=== PATIENT | male | born 1955 | race Caucasian/White ===

== ENCOUNTER 2018-01-29 19:38 | Inpatient (IN) | payer BC, OTHER ==
[~2018-01-29] VITALS: Ht 170.2 cm; Wt 86.0 kg
[2018-01-29] MEDS ORDERED: IV NORMAL SALINE 1000ML BAG 1,000 ML IV ONE (20:15)
[2018-01-29] MEDS ORDERED: fentaNYL PF VIAL 100 MCG/2 ML VIAL IV ONE ×3 (20:15→22:15)
--- NOTE | 2018-01-29 20:31 | EKG ---
[facility] [address] [place] [address] Test Date: 2018-01-29 Test Time: 19:41:09 Pat Name: CITLALLI SIMMONS Department: Room: Gender: Male Retail Business Analyst: NABEEL : 1955 Requested By: JAMES SMITH Order Number: [id number] Reading MD: Gucci Braun MD Measurements Intervals [place] Rate: 62 P: 30 [place]: 216 QRS: -20 QRSD: 94 T: 7 QT: 422 QTc: 431 Interpretive Statements SINUS RHYTHM Electronically Signed On 01-31-2018 10:05:37 CDT by Gucci Braun MD
[2018-01-29 20:42] LABS: BASO # 0.1 x10^3/uL (0.0-0.2); BASO % 1 % (0-3); EOS # 0.2 x10^3/uL (0.0-0.7); EOS % 2 % (0-3); HEMATOCRIT 39.7 % (39.0-53.0); HEMOGLOBIN 13.3 g/dL (13.0-17.5); LYMPH # 0.9 x10^3/uL (1.0-4.8); LYMPH % 9 % (24-48); MEAN CORPUSCULAR HEMOGLOBIN 30 pg (25-35); MEAN CORPUSCULAR HGB CONC 34 g/dL (31-37); MEAN CORPUSCULAR VOLUME 88 fL (79-100); MONO # 0.8 x10^3/uL (0.0-1.1); MONO % 8 % (0-9); NEUT # 8.7 x10^3uL (1.8-7.7); NEUT % 81 % (31-73); PLATELET COUNT 215 x10^3/uL (140-400); RED BLOOD COUNT 4.49 x10^6/uL (4.30-5.70); RED CELL DISTRIBUTION WIDTH 13.9 % (11.5-14.5); WHITE BLOOD COUNT 10.7 x10^3/uL (4.0-11.0)
[2018-01-29 20:51] LABS: CALCIUM 7.8 mg/dL (8.5-10.1); CREATININE 0.9 mg/dL (0.7-1.3); GFR 85.2; POTASSIUM 3.9 mmol/L (3.5-5.1); PROTHROMBIN TIME PATIENT 12.9 SEC (11.7-14.0)
[2018-01-29 20:57] LABS: ALBUMIN 3.4 g/dL (3.4-5.0); ALBUMIN/GLOBULIN RATIO 1.2 (1.0-1.7); TOTAL BILIRUBIN 0.4 mg/dL (0.2-1.0); TOTAL PROTEIN 6.2 g/dL (6.4-8.2)
--- NOTE | 2018-01-29 21:06 | RAD ---
PQRS Compliance statement: One or more of the following individualized dose reduction techniques were utilized for this examination: 1. Automated exposure control. 2. Adjustment of the mA and/or kV according to patient size. 3. Use of iterative reconstruction technique. Indication:fall from ladder, no priors TECHNIQUE: CT head without IV contrast COMPARISON:None FINDINGS: No pathologic extra-axial or intra-axial fluid collection. The ventricles and basal cisterns are within normal limits. No acute intracranial bleed. Orbits are within normal limits. No acute calvarial fractures. Visualized paranasal sinuses and mastoid air cells are clear. IMPRESSION: No acute intracranial process. Indication:fall from ladder, no priors TECHNIQUE: CT of the cervical spine without IV contrast with multiplanar reformats. COMPARISON:None FINDINGS: The cervical spine is in normal anatomic alignment. Atlantoaxial joint interval is preserved. No compression deformities. Facet joints are in normal anatomic alignment. No acute fractures. The noncontrast sections through the visualized neck soft tissues are within normal limits. Visualized lung apices are clear. IMPRESSION: No acute fractures. Electronically signed by: Gabriel Gonzáles DO (01/29/2018 9:02 PM) [facility]
--- NOTE | 2018-01-29 21:13 | PHYS DOC ---
Past Medical History Past Medical History: No Pertinent History Past Surgical History: No Surgical History Alcohol Use: None Drug Use: None Adult General Chief Complaint Chief Complaint: TRAUMA ACTIVATION HPI HPI Patient is a 62-year-old male who presents to the emergency department after having fallen from a ladder. Patient states that he was helping cleaning the gutters of his [id number]'s house and as he was cleaning, the ladder started sliding backwards. The patient attempted to grab the gutter for support but unable to hold on. Patient states that he fell approximately 20 feet. Patient states that his right wrist hurts the most at the moment and his pain is 5/10 in severity. Patient states that any movement of his wrist makes the pain worse. Patient also reports striking left knee on ladder as he fell down. Denies head trauma or neck pain. EMS placed patient in C-collar. Denies numbness or tingling. Denies epistaxis. Review of Systems Review of Systems Constitutional: Denies fever or chills [] Eyes: Denies change in visual acuity, redness, or eye pain [] HENT: Denies nasal congestion or sore throat [] Respiratory: Denies cough or shortness of breath [] Cardiovascular: Denies chest pain palpitations[] GI: Denies abdominal pain, nausea, vomiting, or diarrhea [] : Denies dysuria or hematuria [] Musculoskeletal: Endorses right wrist pain, left knee pain, and generalized body soreness Neurologic: Denies headache, focal weakness or sensory changes [] Complete systems were reviewed and found to be within normal limits, except as documented in this note. Current Medications Current Medications Current Medications Medications (Trade) Dose Ordered Sig/Brenda Start Time Stop Time Status Last Admin Dose Admin Fentanyl Citrate (Fentanyl 2ml Vial) 50 mcg 1X ONCE 01/29/18 21:30 01/29/18 21:31 DC 01/29/18 22:08 50 MCG Sodium Chloride 1,000 ml @ 1,000 mls/hr 1X ONCE 01/29/18 20:15 01/29/18 21:14 DC 01/29/18 21:10 1,000 MLS/HR Allergies Allergies Allergies Coded Allergies Type Severity Reaction Last Updated Verified No Known Drug Allergies 01/29/18 No Physical Exam Physical Exam Constitutional: Well developed, well nourished, no acute distress, non-toxic appearance. [] HENT: Normocephalic, atraumatic, oropharynx moist, no oral exudates, nose normal. [] Eyes: PERRL, EOMI. [] Neck: Supple, no stridor, c-collar in place Cardiovascular: Heart rate regular rhythm, no murmur [] Lungs & Thorax: Bilateral breath sounds clear to auscultation [] Abdomen: Soft, no tenderness Skin: Warm, dry, no erythema, no rash. [] Back: no midline spinal tenderness. [] Extremities: Pelvis stable. Right wrist tender, edematous and limited ROM, Deformity noted, left knee with tenderness on palpation of tibial plateau with mild swelling, Anterior drawer test negative. Neurologic: Alert and oriented X 3, normal motor function, normal sensory function, no focal deficits noted. Cerebellar function intact Current Patient Data Vital Signs Vital Signs Date Time Temp Pulse Resp B/P (MAP) Pulse Ox O2 Delivery O2 Flow Rate FiO2 01/29/18 21:11 22 98 Lab Values Laboratory Tests Test 01/29/18 20:35 White Blood Count 10.7 x10^3/uL (4.0-11.0) Red Blood Count 4.49 x10^6/uL (4.30-5.70) Hemoglobin 13.3 g/dL (13.0-17.5) Hematocrit 39.7 % (39.0-53.0) Mean Corpuscular Volume 88 fL (79-100) Mean Corpuscular Hemoglobin 30 pg (25-35) Mean Corpuscular Hemoglobin Concent 34 g/dL (31-37) Red Cell Distribution Width 13.9 % (11.5-14.5) Platelet Count 215 x10^3/uL (140-400) Neutrophils (%) (Auto) 81 % (31-73) H Lymphocytes (%) (Auto) 9 % (24-48) L Monocytes (%) (Auto) 8 % (0-9) Eosinophils (%) (Auto) 2 % (0-3) Basophils (%) (Auto) 1 % (0-3) Neutrophils # (Auto) 8.7 x10^3uL (1.8-7.7) H Lymphocytes # (Auto) 0.9 x10^3/uL (1.0-4.8) L Monocytes # (Auto) 0.8 x10^3/uL (0.0-1.1) Eosinophils # (Auto) 0.2 x10^3/uL (0.0-0.7) Basophils # (Auto) 0.1 x10^3/uL (0.0-0.2) Prothrombin Time 12.9 SEC (11.7-14.0) Prothrombin Time INR 1.0 (0.8-1.1) PTT 21 SEC (24-38) L Sodium Level 141 mmol/L (136-145) Potassium Level 3.9 mmol/L (3.5-5.1) Chloride Level 107 mmol/L (98-107) Carbon Dioxide Level 28 mmol/L (21-32) Anion Gap 6 (6-14) Blood Urea Nitrogen 18 mg/dL (8-26) Creatinine 0.9 mg/dL (0.7-1.3) Estimated GFR (Cockcroft-Gault) 85.2 BUN/Creatinine Ratio 20 (6-20) Glucose Level 112 mg/dL (70-99) H Calcium Level 7.8 mg/dL (8.5-10.1) L Magnesium Level 2.0 mg/dL (1.8-2.4) Total Bilirubin 0.4 mg/dL (0.2-1.0) Aspartate Amino Transferase (AST) 28 U/L (15-37) Alanine Aminotransferase (ALT) 32 U/L (16-63) Alkaline Phosphatase 65 U/L (46-116) Total Protein 6.2 g/dL (6.4-8.2) L Albumin 3.4 g/dL (3.4-5.0) Albumin/Globulin Ratio 1.2 (1.0-1.7) Ethyl Alcohol Level < 10 mg/dL (0-10) Laboratory Tests 01/29/18 20:35 Laboratory Tests 01/29/18 20:35 EKG EKG NSR at 62bpm, NO ST elevation Radiology/Procedures Radiology/Procedures PROCEDURE: CT HEAD AND CERVICAL SPINE [facility] Compliance statement: One or more of the following individualized dose reduction techniques were utilized for this examination: 1. Automated exposure control. 2. Adjustment of the mA and/or kV according to patient size. 3. Use of iterative reconstruction technique. Indication:fall from ladder, no priors TECHNIQUE: CT head without IV contrast COMPARISON:None FINDINGS: No pathologic extra-axial or intra-axial fluid collection. The ventricles and basal cisterns are within normal limits. No acute intracranial bleed. Orbits are within normal limits. No acute calvarial fractures. Visualized paranasal sinuses and mastoid air cells are clear. IMPRESSION: No acute intracranial process. Indication:fall from ladder, no priors TECHNIQUE: CT of the cervical spine without IV contrast with multiplanar reformats. COMPARISON:None FINDINGS: The cervical spine is in normal anatomic alignment. Atlantoaxial joint interval is preserved. No compression deformities. Facet joints are in normal anatomic alignment. No acute fractures. The noncontrast sections through the visualized neck soft tissues are within normal limits. Visualized lung apices are clear. IMPRESSION: No acute fractures. Electronically signed by: Gabriel Gonzáles DO (01/29/2018 9:02 PM) [facility] PROCEDURE: CT CHEST ABD PELVIS W/CONTRAST INDICATION: fall from ladder, back pain, no priors COMPARISON: None. TECHNIQUE: Axial CT images obtained through the chest, abdomen and pelvis with intravenous contrast. Reformatted images were processed of the thoracic and lumbar spine. One or more of the following individualized dose reduction techniques were utilized for this examination: 1. Automated exposure control; 2. Adjustment of the mA and/or kV according to patient size; 3. Use of iterative reconstruction technique. FINDINGS: Chest: No evidence of pneumothorax. Probable dependent atelectasis. Ascending thoracic aorta partially obscured by motion but portion appears prominent in size measuring up to about 44 mm. Small fluid in pericardial recess which is a common finding. Mild angulation of the right sixth rib anteriorly. Angulation of a couple of the left mid ribs anteriorly, this includes the third through fifth ribs. Mild angulation of the right 11th rib anteriorly. Abdomen and pelvis: Mild calcific atherosclerosis without abdominal aortic aneurysm. No perihepatic hemorrhage. There are some subcentimeter low-density liver lesions which are too small to characterize on this exam but a common finding. No peripancreatic fluid collection. No perisplenic hemorrhage. No hydronephrosis. At the posterior aspect of the right kidney there is suggestion of a mixed attenuation masslike structure measuring up to about 3 cm. There is adjacent 13 mm low-density right renal lesion. Urinary bladder is partially distended at time of exam. No dilated loops of bowel to suggest obstruction. No definite intra-abdominal hemorrhage. Thoracic spine: There are some degenerative changes without evidence of malalignment. Mild loss of height of a couple of the thoracic vertebral bodies including T8 and T9. Lumbar spine: Degenerative changes are identified without definite acute fracture or dislocation. IMPRESSION: 1. No definite solid organ or vascular injury. 2. suspected solid mass of the right kidney. Would obtain a nonemergent follow-up CT or MRI renal protocol to further evaluate since renal cell carcinoma is in the differential for this finding. 3. Minimal loss of height of a couple of the thoracic vertebral bodies including T8 and T9. This is a very subtle finding and could be the patient's baseline appearance or secondary to old mild compression deformity unless there is significant point tenderness in the region to suggest a mild compression fracture. There is also some mild angulation of bilateral ribs which could be from old injury but would correlate with point tenderness to ensure that there is not acute fracture. 4. Ascending thoracic aorta prominent in size. XRs (Preliminary interpretation by ED physician) Right wrist: Comminuted distal radius fracture Left knee: Lateral tibial plateau fracture CXR: No acute process Pelvis: No acute fracture/dislocation Right forearm s/p splint placement: Slight improved alignment of comminuted distal radius fracture Course & Med Decision Making Course & Med Decision Making Pertinent Labs and Imaging studies reviewed. (See chart for details) Patient presents as trauma activation status post fall approximately 20 feet on a extension ladder. Patient with obvious deformity of right wrist and pain to left knee. Pain address. Patient neurologically intact. C-collar maintained. Trauma evaluation performed. FAST exam negative. CT head/chest/abdomen/pelvis without acute process. CT cervical/thoracic/lumbar spine without fracture or dislocation. Chest x-ray/pelvis x-ray without acute process. X-ray of right wrist notes comminuted distal right radius fracture. Limb neurovascularly intact. Left knee x-ray with lateral tibial plateau fracture. Sugar tong splint applied to right arm. Forearm XR notes some slight improvement of alignment. Knee immobilizer also placed. Discussed case with Dr. Richardson (trauma) who is in agreement with consultation. Discussed case with Dr. Cardona (orthopedics) who is also in agreement with consultation. Patient requiring admission for further evaluation and treatment. Discussed with Dr. Ashford (hospitalist) who is in agreement with admission. Discussed findings and plan with patient and family, who acknowledge understanding and agreement. Dragon Disclaimer Dragon Disclaimer This electronic medical record was generated, in whole or in part, using a voice recognition dictation system. Splinting Splinting : Location: right wrist and left knee Pre-Made Type: knee immobilizer (left knee) Hand-Made Type: orthoglass (R wrist) Splint: sugar-tong (right wrist) Pre-Proc Neuro Vasc Exam: normal Post-Proc Neuro Vasc Exam: normal, unchanged from pre-exam Departure Departure Impression: Primary Impression: Fall Additional Impressions: Fracture of left tibial plateau Fracture of right distal radius Disposition: ADMITTED INPATIENT Admitting Physician: Leatha Ashford Condition: STABLE Referrals: DAWSON RAMIREZ DO (PCP) Problem Qualifiers Primary Impression: Fall Encounter type: initial encounter Qualified Codes: W19.XXXA - Unspecified fall, initial encounter Additional Impressions: Fracture of left tibial plateau Encounter type: initial encounter Fracture type: closed Qualified Codes: S82.142A - Displaced bicondylar fracture of left tibia, initial encounter for closed fracture Fracture of right distal radius Encounter type: initial encounter Fracture type: closed Fracture morphology : unspecified fracture morphology Qualified Codes: S52.501A - Unspecified fracture of the lower end of right radius, initial encounter for closed fracture JAMES SMITH DO Jan 29, 2018 21:13
[2018-01-29] MEDS ORDERED: CONTRAST GIVEN. MC PRN (22:45)
[2018-01-29 23:00] VITALS: BP 152/96
[2018-01-29] MEDS ORDERED: IOHEXOL 300 MG/ML 100ML VIAL. IV ONE (23:00)
--- NOTE | 2018-01-29 23:57 | RAD ---
INDICATION: fall from ladder, back pain, no priors COMPARISON: None. TECHNIQUE: Axial CT images obtained through the chest, abdomen and pelvis with intravenous contrast. Reformatted images were processed of the thoracic and lumbar spine. One or more of the following individualized dose reduction techniques were utilized for this examination: 1. Automated exposure control; 2. Adjustment of the mA and/or kV according to patient size; 3. Use of iterative reconstruction technique. FINDINGS: Chest: No evidence of pneumothorax. Probable dependent atelectasis. Ascending thoracic aorta partially obscured by motion but portion appears prominent in size measuring up to about 44 mm. Small fluid in pericardial recess which is a common finding. Mild angulation of the right sixth rib anteriorly. Angulation of a couple of the left mid ribs anteriorly, this includes the third through fifth ribs. Mild angulation of the right 11th rib anteriorly. Abdomen and pelvis: Mild calcific atherosclerosis without abdominal aortic aneurysm. No perihepatic hemorrhage. There are some subcentimeter low-density liver lesions which are too small to characterize on this exam but a common finding. No peripancreatic fluid collection. No perisplenic hemorrhage. No hydronephrosis. At the posterior aspect of the right kidney there is suggestion of a mixed attenuation masslike structure measuring up to about 3 cm. There is adjacent 13 mm low-density right renal lesion. Urinary bladder is partially distended at time of exam. No dilated loops of bowel to suggest obstruction. No definite intra-abdominal hemorrhage. Thoracic spine: There are some degenerative changes without evidence of malalignment. Mild loss of height of a couple of the thoracic vertebral bodies including T8 and T9. Lumbar spine: Degenerative changes are identified without definite acute fracture or dislocation. IMPRESSION: 1. No definite solid organ or vascular injury. 2. suspected solid mass of the right kidney. Would obtain a nonemergent follow-up CT or MRI renal protocol to further evaluate since renal cell carcinoma is in the differential for this finding. 3. Minimal loss of height of a couple of the thoracic vertebral bodies including T8 and T9. This is a very subtle finding and could be the patient's baseline appearance or secondary to old mild compression deformity unless there is significant point tenderness in the region to suggest a mild compression fracture. There is also some mild angulation of bilateral ribs which could be from old injury but would correlate with point tenderness to ensure that there is not acute fracture. 4. Ascending thoracic aorta prominent in size. Electronically signed by: Nathan Day MD (01/29/2018 11:53 PM) [facility]
[2018-01-30 00:47] LABS: BILIRUBIN,URINE NEGATIVE (NEG); CLARITY,URINE CLEAR; COLOR,URINE YELLOW; NITRITE,URINE NEGATIVE (NEG); PROTEIN,URINE NEGATIVE (NEG-TRACE); UROBILINOGEN,URINE 0.2 mg/dL (0.2 mg/dL)
[2018-01-30 00:53] LABS: BARBITURATES NEG (NEG); BENZODIAZEPINES NEG (NEG); CANNABINOIDS NEG (NEG); COCAINE NEG (NEG); METHADONE NEG (NEG); OPIATES NEG (NEG); PHENCYCLIDINE NEG (NEG)
[2018-01-30 00:55] LABS: AMPHETAMINE/METHAMPHETAMINE NEG (NEG)
[2018-01-30 00:58] LABS: BACTERIA,URINE 0 /HPF (0-FEW); RBC,URINE 0 /HPF (0-2); SQUAMOUS EPITHELIAL CELL,UR OCC /LPF; WBC,URINE OCC /HPF (0-4)
[2018-01-30] MEDS: fentaNYL PF VIAL 100 MCG/2 ML VIAL IV PRN ×9 (01:14→23:31)
[2018-01-30 03:00] VITALS: BP 126/80
[2018-01-30] MEDS ORDERED: PSEU120T9 PO (06:19)
[2018-01-30] MEDS ORDERED: ASPI-630 PO (06:19)
[2018-01-30] MEDS ORDERED: CETI10TA22 PO (06:19)
[2018-01-30 07:00] VITALS: BP 140/94
--- NOTE | 2018-01-30 09:12 | RAD ---
EXAM: PA, oblique and lateral views of the right wrist DATE: 01/29/2018 8:12 PM INDICATION: FALL FROM LADDER COMPARISON: No Prior FINDINGS/ IMPRESSION: Comminuted right wrist fracture extending from the distal radial diametaphysis to the articular surface at the radial styloid. There is mild impaction of the fracture with approximately 1 cm overriding of the proximal fragments. There is 4 mm gap at the articular surface. Neutral radial tilt with flattening of the inclination angle. Moderate soft tissue swelling is seen. Thumb CMC prominent degenerative changes are seen. Electronically signed by: Yogi Greene MD (01/30/2018 9:09 AM) [facility]
--- NOTE | 2018-01-30 09:19 | RAD ---
Right forearm 2 views: Reason for examination: Status post splint for a distal radial fracture. Comparison is made to previous wrist examination dated 01/29/2018. Again evident is a comminuted fracture with intra-articular extension at the distal radius. There is slight improvement in alignment. Again noted is the ulnar styloid fracture which is unchanged. Carpal bones appear to be intact. IMPRESSION: Comminuted fracture of the distal radius with intra-articular extension showing a slight improvement in alignment post splinting. No change in the ulnar styloid fracture. Electronically signed by: Gale Naidu MD (01/30/2018 9:15 AM) [facility]
--- NOTE | 2018-01-30 09:21 | RAD ---
EXAM: AP, oblique and lateral views of the left knee DATE: 01/29/2018 8:12 PM INDICATION: FALL FROM LADDER COMPARISON: No Prior FINDINGS/ IMPRESSION: There is comminuted fracture of the lateral tibial plateau with associated fragmentation and depression of the articular surface measuring at least 1 cm. There is a split-type fracture as seen on the lateral view extending from the articular surface to the proximal tibial shaft posteriorly. Small left knee joint effusion. Electronically signed by: Yogi Greene MD (01/30/2018 9:17 AM) [facility]
--- NOTE | 2018-01-30 09:25 | RAD ---
EXAM: Portable supine AP chest DATE: 01/29/2018 8:02 PM INDICATION: FALL FROM LADDER COMPARISON: No Prior FINDINGS: The heart is not enlarged. Mediastinal and hilar contours are normal. No focal parenchymal airspace opacity. No pleural effusion or pneumothorax. IMPRESSION: 1. No radiographic evidence for acute cardiopulmonary process. Electronically signed by: Yogi Greene MD (01/30/2018 9:21 AM) [facility]
--- NOTE | 2018-01-30 09:29 | RAD ---
EXAM: AP pelvis DATE: 01/29/2018 8:02 PM INDICATION: FALL FROM LADDER COMPARISON: No Prior FINDINGS: No evidence of acute fracture or dislocation. Joint spaces are grossly preserved mild marginal acetabular proliferative change. Mild iliac crest enthesopathy. IMPRESSION: No evidence for acute fracture or dislocation. Electronically signed by: Ygoi Greene MD (01/30/2018 9:25 AM) [facility]
[2018-01-30] MEDS: oxyCODONE/APAP 5/325 1 TAB TABLET PO PRN ×4 (09:53→23:19)
--- NOTE | 2018-01-30 09:53 | PDOC2 ---
CONSULT Date of Consult Date of Consult DATE: 01/30/18 TIME: 09:46 Reason for Consult Reason for Consult: Right distal radius and left tibial plateau fractures Referring Physician Referring Physician: Titus Identification/Chief Complaint Chief Complaint Right wrist pain Source Source: Patient History of Present Illness Reason for Visit: Patient is a pleasant 62-year-old gentleman who had a fall from a height, proximally 12:15 feet while he was up on a ladder, he landed with his weight on his leg and then fell to the side bracing his fall with his right wrist. Because of pain, deformity, and inability to ambulate he was brought in as a trauma activation. He is complaining that his wrist hurts more than his leg. He has also noted some left foot and ankle pain. He denies pain elsewhere, including his back and abdomen. His pain is worse with any movement, it is a little bit better press, the IV pain medicine has been helping, but it is not lasting long. He denies any nausea or vomiting, no chest pain, no difficulty breathing. Past Medical History Cardiovascular: No pertinent hx Pulmonary: No pertinent hx Past Surgical History Past Surgical History Tonsillectomy, rotator cuff surgery Family History Family History: Heart Disease Social History No ALCOHOL: rare Current Problem List Problem List Problems Medical Problems: (1) Fall Status: Acute (2) Fracture of left distal radius Status: Acute (3) Fracture of left tibial plateau Status: Acute (4) Fracture of right distal radius Status: Acute Current Medications Current Medications Current Medications Fentanyl Citrate (Fentanyl 2ml Vial) 50 mcg 1X ONCE IV Last administered on at 21:11; Start 01/29/18 at 20:15; Stop 01/29/18 at 20:16; Status DC Sodium Chloride 1,000 ml @ 1,000 mls/hr 1X ONCE IV Last administered on at 21:10; Start 01/29/18 at 20:15; Stop 01/29/18 at 21:14; Status DC Fentanyl Citrate (Fentanyl 2ml Vial) 50 mcg 1X ONCE IV Last administered on at 22:08; Start 01/29/18 at 21:30; Stop 01/29/18 at 21:31; Status DC Fentanyl Citrate (Fentanyl 2ml Vial) 50 mcg PRN Q2HR PRN IV SEVERE PAIN Last administered on 01/30/18at 07:45; Start 01/29/18 at 22:00; Stop 01/30/18 at 21:59 Fentanyl Citrate (Fentanyl 2ml Vial) 50 mcg 1X ONCE IV Last administered on at 23:33; Start 01/29/18 at 22:15; Stop 01/29/18 at 22:16; Status DC Iohexol (Omnipaque 300 Mg/ml) 75 ml 1X ONCE IV Last administered on 01/29/18at 23:17; Start 01/29/18 at 23:00; Stop 01/29/18 at 23:01; Status DC Info (CONTRAST GIVEN -- Rx MONITORING) 1 each PRN DAILY PRN MC SEE COMMENTS; Start 01/29/18 at 22:45; Stop 01/31/18 at 22:44 Oxycodone/ Acetaminophen (Percocet 5/325) 1 tab PRN Q4HRS PRN PO PAIN; Start at 09:45; Status UNV Active Scripts Active Reported Sudafed 12-Hour (Pseudoephedrine Hcl) 120 Mg Tablet.er 120 Mg PO DAILY Aspirin 81 Mg Tab.chew 1 Tab PO DAILY Zyrtec (Cetirizine Hcl) 10 Mg Tablet 1 Tab PO HS Allergies Allergies: Coded Allergies: No Known Drug Allergies (Unverified , 01/29/18) ROS General: No: Chills, Night Sweats, Fatigue, Malaise, Appetite, Other PSYCHOLOGICAL ROS: No: Anxiety, Behavioral Disorder, Concentration difficultie , Decreased libido, Depression, Disorientation, Hallucinations, Hostility, Irritablity, Memory difficulties, Mood Swings, Obsessive thoughts, Physical abuse, Sexual abuse, Sleep disturbances, Suicidal ideation, Other Eyes: No Blurry vision, No Decreased vision, No Double vision, No Dry eyes, No Excessive tearing, No Eye Pain, No Itchy Eyes, No Loss of vision, No Photophobia , No Scotomata, No Uses contacts, No Uses glasses, No Other HEENT: No: Heacaches, Visual Changes, Hearing change, Nasal congestion, Nasal discharge, Oral lesions, Sinus pain, Sore Throat, Epistaxis, Sneezing, Snoring, Tinnitus, Vertigo, Vocal changes, Other ALLERGY AND IMMUNOLOGY: No: Hives, Insect Bite Sensitivity, Itchy/Watery Eyes, Nasal Congestion, Post Nasal Drip, Seasonal Allergies, Other Hematological and Lymphatic: No: Bleeding Problems, Blood Clots, Blood Transfusions, Brusing, Night Sweats, Pallor, Swollen Lymph Nodes, Other ENDOCRINE: No: Breast Changes, Galactorrhea, Hair Pattern Changes, Hot Flashes , Malaise/lethargy, Mood Swings, Palpitations, Polydipsia/polyuria, Skin Changes , Temperature Intolerance, Unexpected Weight Changes, Other Respiratory: No: Cough, Hemoptysis, Orthopnea, Pleuritic Pain, Shortness of breath, SOB with excertion, Sputum Changes, Stridor, Tachypnea, Wheezing, Other Cardiovascular: No Chest Pain, No Palpitations, No Orthopnea, No Paroxysmal Noc. Dyspnea, No Edema, No Lt Headedness, No Other Gastrointestinal: No Nausea, No Vomiting, No Abdominal Pain, No Diarrhea, No Constipation, No Melena, No Hematochezia, No Other Genitourinary: No Dysuria, No Frequency, No Incontinence, No Hematuria, No Retention, No Discharge, No Urgency, No Pain, No Flank Pain, No Other, No , No , No , No , No , No , No Musculoskeletal: Yes Joint Pain, Yes Muscle Pain Neurological: No Behavorial Changes, No Bowel/Bladder ControlChng, No Confusion , No Dizziness, No Gait Disturbance, No Headaches, No Impaired Coord/balance, No Memory Loss, No Numbness/Tingling, No Seizures, No Speech Problems, No Tremors, No Visual Changes, No Weakness, No Other Skin: No Dry Skin, No Eczema, No Hair Changes, No Lumps, No Mole Changes, No Mottling, No Nail Changes, No Pruritus, No Rash, No Skin Lesion Changes, No Other, No Acne Physical Exam General: Alert, Oriented X3, mild distress HEENT: Atraumatic, EOMI Lungs: Other (respirations are unlabored with symmetric chest rise) Heart: Regular rate, Other (dorsalis pedis 2+ bilaterally) Abdomen: Soft, No tenderness Extremities: No edema, Normal pulses Skin: No rashes Neuro: Normal speech, Strength at 5/5 X4 ext, Sensation intact Psych/Mental Status: Mental status NL, Mood NL MUSCULOSKELETAL: Other (no tenderness at bony prominences and spine. He is in a sugar tong to his right upper extremity, mild edema at his fingers. Motor and sensation intact to be exposed digits. He has a knee immobilizer place over his left lower extremity. He does have an effusion present at his knee. He does have edema around the fracture site but no blisters. No pain with passive range of motion at ankle or toes. Compartments are soft. He is tender over his lateral midfoot on the left side. No tenderness at bony prominences of right lower extremity or left upper extremity.) Vitals VITALS Vital Signs Date Time Temp Pulse Resp B/P (MAP) Pulse Ox O2 Delivery O2 Flow Rate FiO2 01/30/18 07:45 Room Air 01/30/18 07:00 98.1 64 18 140/94 (109) 95 98.1 01/29/18 22:13 96.0 Labs Labs Laboratory Tests Test 01/29/18 20:35 01/30/18 00:40 White Blood Count 10.7 x10^3/uL (4.0-11.0) Red Blood Count 4.49 x10^6/uL (4.30-5.70) Hemoglobin 13.3 g/dL (13.0-17.5) Hematocrit 39.7 % (39.0-53.0) Mean Corpuscular Volume 88 fL (79-100) Mean Corpuscular Hemoglobin 30 pg (25-35) Mean Corpuscular Hemoglobin Concent 34 g/dL (31-37) Red Cell Distribution Width 13.9 % (11.5-14.5) Platelet Count 215 x10^3/uL (140-400) Neutrophils (%) (Auto) 81 % (31-73) Lymphocytes (%) (Auto) 9 % (24-48) Monocytes (%) (Auto) 8 % (0-9) Eosinophils (%) (Auto) 2 % (0-3) Basophils (%) (Auto) 1 % (0-3) Neutrophils # (Auto) 8.7 x10^3uL (1.8-7.7) Lymphocytes # (Auto) 0.9 x10^3/uL (1.0-4.8) Monocytes # (Auto) 0.8 x10^3/uL (0.0-1.1) Eosinophils # (Auto) 0.2 x10^3/uL (0.0-0.7) Basophils # (Auto) 0.1 x10^3/uL (0.0-0.2) Prothrombin Time 12.9 SEC (11.7-14.0) Prothromb Time International Ratio 1.0 (0.8-1.1) Activated Partial Thromboplast Time 21 SEC (24-38) Sodium Level 141 mmol/L (136-145) Potassium Level 3.9 mmol/L (3.5-5.1) Chloride Level 107 mmol/L (98-107) Carbon Dioxide Level 28 mmol/L (21-32) Anion Gap 6 (6-14) Blood Urea Nitrogen 18 mg/dL (8-26) Creatinine 0.9 mg/dL (0.7-1.3) Estimated GFR (Cockcroft-Gault) 85.2 BUN/Creatinine Ratio 20 (6-20) Glucose Level 112 mg/dL (70-99) Calcium Level 7.8 mg/dL (8.5-10.1) Magnesium Level 2.0 mg/dL (1.8-2.4) Total Bilirubin 0.4 mg/dL (0.2-1.0) Aspartate Amino Transf (AST/SGOT) 28 U/L (15-37) Alanine Aminotransferase (ALT/SGPT) 32 U/L (16-63) Alkaline Phosphatase 65 U/L (46-116) Total Protein 6.2 g/dL (6.4-8.2) Albumin 3.4 g/dL (3.4-5.0) Albumin/Globulin Ratio 1.2 (1.0-1.7) Ethyl Alcohol Level < 10 mg/dL (0-10) Urine Collection Type Unknown Urine Color Yellow Urine Clarity Clear Urine pH 6.0 Urine Specific [place] >=1.030 Urine Protein Negative mg/dL (NEG-TRACE) Urine Glucose (UA) Negative mg/dL (NEG) Urine Ketones (Stick) Negative mg/dL (NEG) Urine Blood Negative (NEG) Urine Nitrite Negative (NEG) Urine Bilirubin Negative (NEG) Urine Urobilinogen Dipstick 0.2 mg/dL (0.2 mg/dL) Urine Leukocyte Esterase Negative (NEG) Urine RBC 0 /HPF (0-2) Urine WBC Occ /HPF (0-4) Urine Squamous Epithelial Cells Occ /LPF Urine Bacteria 0 /HPF (0-FEW) Urine Mucus Slight /LPF Urine Opiates Screen Neg (NEG) Urine Methadone Screen Neg (NEG) Urine Barbiturates Neg (NEG) Urine Phencyclidine Screen Neg (NEG) Urine Amphetamine/Methamphetamine Neg (NEG) Urine Benzodiazepines Screen Neg (NEG) Urine Cocaine Screen Neg (NEG) Urine Cannabinoids Screen Neg (NEG) Urine Ethyl Alcohol Neg (NEG) Laboratory Tests Test 01/29/18 20:35 01/30/18 00:40 White Blood Count 10.7 x10^3/uL (4.0-11.0) Red Blood Count 4.49 x10^6/uL (4.30-5.70) Hemoglobin 13.3 g/dL (13.0-17.5) Hematocrit 39.7 % (39.0-53.0) Mean Corpuscular Volume 88 fL (79-100) Mean Corpuscular Hemoglobin 30 pg (25-35) Mean Corpuscular Hemoglobin Concent 34 g/dL (31-37) Red Cell Distribution Width 13.9 % (11.5-14.5) Platelet Count 215 x10^3/uL (140-400) Neutrophils (%) (Auto) 81 % (31-73) Lymphocytes (%) (Auto) 9 % (24-48) Monocytes (%) (Auto) 8 % (0-9) Eosinophils (%) (Auto) 2 % (0-3) Basophils (%) (Auto) 1 % (0-3) Neutrophils # (Auto) 8.7 x10^3uL (1.8-7.7) Lymphocytes # (Auto) 0.9 x10^3/uL (1.0-4.8) Monocytes # (Auto) 0.8 x10^3/uL (0.0-1.1) Eosinophils # (Auto) 0.2 x10^3/uL (0.0-0.7) Basophils # (Auto) 0.1 x10^3/uL (0.0-0.2) Prothrombin Time 12.9 SEC (11.7-14.0) Prothromb Time International Ratio 1.0 (0.8-1.1) Activated Partial Thromboplast Time 21 SEC (24-38) Sodium Level 141 mmol/L (136-145) Potassium Level 3.9 mmol/L (3.5-5.1) Chloride Level 107 mmol/L (98-107) Carbon Dioxide Level 28 mmol/L (21-32) Anion Gap 6 (6-14) Blood Urea Nitrogen 18 mg/dL (8-26) Creatinine 0.9 mg/dL (0.7-1.3) Estimated GFR (Cockcroft-Gault) 85.2 BUN/Creatinine Ratio 20 (6-20) Glucose Level 112 mg/dL (70-99) Calcium Level 7.8 mg/dL (8.5-10.1) Magnesium Level 2.0 mg/dL (1.8-2.4) Total Bilirubin 0.4 mg/dL (0.2-1.0) Aspartate Amino Transf (AST/SGOT) 28 U/L (15-37) Alanine Aminotransferase (ALT/SGPT) 32 U/L (16-63) Alkaline Phosphatase 65 U/L (46-116) Total Protein 6.2 g/dL (6.4-8.2) Albumin 3.4 g/dL (3.4-5.0) Albumin/Globulin Ratio 1.2 (1.0-1.7) Ethyl Alcohol Level < 10 mg/dL (0-10) Urine Collection Type Unknown Urine Color Yellow Urine Clarity Clear Urine pH 6.0 Urine Specific [place] >=1.030 Urine Protein Negative mg/dL (NEG-TRACE) Urine Glucose (UA) Negative mg/dL (NEG) Urine Ketones (Stick) Negative mg/dL (NEG) Urine Blood Negative (NEG) Urine Nitrite Negative (NEG) Urine Bilirubin Negative (NEG) Urine Urobilinogen Dipstick 0.2 mg/dL (0.2 mg/dL) Urine Leukocyte Esterase Negative (NEG) Urine RBC 0 /HPF (0-2) Urine WBC Occ /HPF (0-4) Urine Squamous Epithelial Cells Occ /LPF Urine Bacteria 0 /HPF (0-FEW) Urine Mucus Slight /LPF Urine Opiates Screen Neg (NEG) Urine Methadone Screen Neg (NEG) Urine Barbiturates Neg (NEG) Urine Phencyclidine Screen Neg (NEG) Urine Amphetamine/Methamphetamine Neg (NEG) Urine Benzodiazepines Screen Neg (NEG) Urine Cocaine Screen Neg (NEG) Urine Cannabinoids Screen Neg (NEG) Urine Ethyl Alcohol Neg (NEG) Images Images CT chest abdomen and pelvis was reviewed. X-rays of his leg and right wrist were interpreted by myself. Report was also reviewed. He has comminuted metadiaphyseal fracture of his right distal radius. He has a lateral tibial plateau fracture with a large amount of depression. Assessment/Plan Assessment/Plan I think his soft tissue envelope around his wrist is amenable to surgical fixation and I discussed the risks, benefits, alternatives to this fixation tomorrow. I discussed the expected rehabilitation as well as the risks, benefits , and alternatives. Regarding his tibial plateau fracture, I think we will likely need to wait at least until next week for definitive fixation. MARIMAR WORTHINGTON II, MD Jan 30, 2018 09:53
[2018-01-30 11:00] VITALS: BP 142/86
--- NOTE | 2018-01-30 11:41 | PDOC2 ---
CONSULT Date of Consult Date of Consult DATE: 01/30/18 TIME: 11:36 Reason for Consult Reason for Consult: fall from 20 feet Referring Physician Referring Physician: TATI Identification/Chief Complaint Chief Complaint right wrist and left knee pain Source Source: Chart review, Patient History of Present Illness Reason for Visit: Marlon is a 62 yo male who was cleaning his gutters when his ladder slipped and he fell approximately 20 feet. No LOC. Past Medical History Cardiovascular: No pertinent hx Pulmonary: No pertinent hx Past Surgical History Past Surgical History: No pertinent history Family History Family History: Heart Disease Social History No ALCOHOL: rare Lives: with Family Current Problem List Problem List Problems Medical Problems: (1) Fall Status: Acute (2) Fracture of left distal radius Status: Acute (3) Fracture of left tibial plateau Status: Acute (4) Fracture of right distal radius Status: Acute Current Medications Current Medications Current Medications Fentanyl Citrate (Fentanyl 2ml Vial) 50 mcg 1X ONCE IV Last administered on at 21:11; Start 01/29/18 at 20:15; Stop 01/29/18 at 20:16; Status DC Sodium Chloride 1,000 ml @ 1,000 mls/hr 1X ONCE IV Last administered on at 21:10; Start 01/29/18 at 20:15; Stop 01/29/18 at 21:14; Status DC Fentanyl Citrate (Fentanyl 2ml Vial) 50 mcg 1X ONCE IV Last administered on at 22:08; Start 01/29/18 at 21:30; Stop 01/29/18 at 21:31; Status DC Fentanyl Citrate (Fentanyl 2ml Vial) 50 mcg PRN Q2HR PRN IV SEVERE PAIN Last administered on 01/30/18at 09:53; Start 01/29/18 at 22:00; Stop 01/30/18 at 21:59 Fentanyl Citrate (Fentanyl 2ml Vial) 50 mcg 1X ONCE IV Last administered on at 23:33; Start 01/29/18 at 22:15; Stop 01/29/18 at 22:16; Status DC Iohexol (Omnipaque 300 Mg/ml) 75 ml 1X ONCE IV Last administered on 01/29/18at 23:17; Start 01/29/18 at 23:00; Stop 01/29/18 at 23:01; Status DC Info (CONTRAST GIVEN -- Rx MONITORING) 1 each PRN DAILY PRN MC SEE COMMENTS; Start 01/29/18 at 22:45; Stop 01/31/18 at 22:44 Oxycodone/ Acetaminophen (Percocet 5/325) 1 tab PRN Q4HRS PRN PO PAIN; Start at 09:45 Active Scripts Active Reported Sudafed 12-Hour (Pseudoephedrine Hcl) 120 Mg Tablet.er 120 Mg PO DAILY Aspirin 81 Mg Tab.chew 1 Tab PO DAILY Zyrtec (Cetirizine Hcl) 10 Mg Tablet 1 Tab PO HS Allergies Allergies: Coded Allergies: No Known Drug Allergies (Unverified , 01/29/18) ROS Review of System negative with exception of present complaints Physical Exam General: Alert, Oriented X3, Cooperative, No acute distress HEENT: Atraumatic Lungs: Normal air movement Heart: Regular rate Abdomen: Soft Extremities: Other (splint on right forearm, knee brace left) Neuro: Normal speech Vitals VITALS Vital Signs Date Time Temp Pulse Resp B/P (MAP) Pulse Ox O2 Delivery O2 Flow Rate FiO2 01/30/18 11:00 98.2 60 18 142/86 (104) 96 Room Air 98.2 01/29/18 22:13 96.0 Labs Labs Laboratory Tests Test 01/29/18 20:35 01/30/18 00:40 White Blood Count 10.7 x10^3/uL (4.0-11.0) Red Blood Count 4.49 x10^6/uL (4.30-5.70) Hemoglobin 13.3 g/dL (13.0-17.5) Hematocrit 39.7 % (39.0-53.0) Mean Corpuscular Volume 88 fL (79-100) Mean Corpuscular Hemoglobin 30 pg (25-35) Mean Corpuscular Hemoglobin Concent 34 g/dL (31-37) Red Cell Distribution Width 13.9 % (11.5-14.5) Platelet Count 215 x10^3/uL (140-400) Neutrophils (%) (Auto) 81 % (31-73) Lymphocytes (%) (Auto) 9 % (24-48) Monocytes (%) (Auto) 8 % (0-9) Eosinophils (%) (Auto) 2 % (0-3) Basophils (%) (Auto) 1 % (0-3) Neutrophils # (Auto) 8.7 x10^3uL (1.8-7.7) Lymphocytes # (Auto) 0.9 x10^3/uL (1.0-4.8) Monocytes # (Auto) 0.8 x10^3/uL (0.0-1.1) Eosinophils # (Auto) 0.2 x10^3/uL (0.0-0.7) Basophils # (Auto) 0.1 x10^3/uL (0.0-0.2) Prothrombin Time 12.9 SEC (11.7-14.0) Prothromb Time International Ratio 1.0 (0.8-1.1) Activated Partial Thromboplast Time 21 SEC (24-38) Sodium Level 141 mmol/L (136-145) Potassium Level 3.9 mmol/L (3.5-5.1) Chloride Level 107 mmol/L (98-107) Carbon Dioxide Level 28 mmol/L (21-32) Anion Gap 6 (6-14) Blood Urea Nitrogen 18 mg/dL (8-26) Creatinine 0.9 mg/dL (0.7-1.3) Estimated GFR (Cockcroft-Gault) 85.2 BUN/Creatinine Ratio 20 (6-20) Glucose Level 112 mg/dL (70-99) Calcium Level 7.8 mg/dL (8.5-10.1) Magnesium Level 2.0 mg/dL (1.8-2.4) Total Bilirubin 0.4 mg/dL (0.2-1.0) Aspartate Amino Transf (AST/SGOT) 28 U/L (15-37) Alanine Aminotransferase (ALT/SGPT) 32 U/L (16-63) Alkaline Phosphatase 65 U/L (46-116) Total Protein 6.2 g/dL (6.4-8.2) Albumin 3.4 g/dL (3.4-5.0) Albumin/Globulin Ratio 1.2 (1.0-1.7) Ethyl Alcohol Level < 10 mg/dL (0-10) Urine Collection Type Unknown Urine Color Yellow Urine Clarity Clear Urine pH 6.0 Urine Specific [place] >=1.030 Urine Protein Negative mg/dL (NEG-TRACE) Urine Glucose (UA) Negative mg/dL (NEG) Urine Ketones (Stick) Negative mg/dL (NEG) Urine Blood Negative (NEG) Urine Nitrite Negative (NEG) Urine Bilirubin Negative (NEG) Urine Urobilinogen Dipstick 0.2 mg/dL (0.2 mg/dL) Urine Leukocyte Esterase Negative (NEG) Urine RBC 0 /HPF (0-2) Urine WBC Occ /HPF (0-4) Urine Squamous Epithelial Cells Occ /LPF Urine Bacteria 0 /HPF (0-FEW) Urine Mucus Slight /LPF Urine Opiates Screen Neg (NEG) Urine Methadone Screen Neg (NEG) Urine Barbiturates Neg (NEG) Urine Phencyclidine Screen Neg (NEG) Urine Amphetamine/Methamphetamine Neg (NEG) Urine Benzodiazepines Screen Neg (NEG) Urine Cocaine Screen Neg (NEG) Urine Cannabinoids Screen Neg (NEG) Urine Ethyl Alcohol Neg (NEG) Laboratory Tests Test 01/29/18 20:35 01/30/18 00:40 White Blood Count 10.7 x10^3/uL (4.0-11.0) Red Blood Count 4.49 x10^6/uL (4.30-5.70) Hemoglobin 13.3 g/dL (13.0-17.5) Hematocrit 39.7 % (39.0-53.0) Mean Corpuscular Volume 88 fL (79-100) Mean Corpuscular Hemoglobin 30 pg (25-35) Mean Corpuscular Hemoglobin Concent 34 g/dL (31-37) Red Cell Distribution Width 13.9 % (11.5-14.5) Platelet Count 215 x10^3/uL (140-400) Neutrophils (%) (Auto) 81 % (31-73) Lymphocytes (%) (Auto) 9 % (24-48) Monocytes (%) (Auto) 8 % (0-9) Eosinophils (%) (Auto) 2 % (0-3) Basophils (%) (Auto) 1 % (0-3) Neutrophils # (Auto) 8.7 x10^3uL (1.8-7.7) Lymphocytes # (Auto) 0.9 x10^3/uL (1.0-4.8) Monocytes # (Auto) 0.8 x10^3/uL (0.0-1.1) Eosinophils # (Auto) 0.2 x10^3/uL (0.0-0.7) Basophils # (Auto) 0.1 x10^3/uL (0.0-0.2) Prothrombin Time 12.9 SEC (11.7-14.0) Prothromb Time International Ratio 1.0 (0.8-1.1) Activated Partial Thromboplast Time 21 SEC (24-38) Sodium Level 141 mmol/L (136-145) Potassium Level 3.9 mmol/L (3.5-5.1) Chloride Level 107 mmol/L (98-107) Carbon Dioxide Level 28 mmol/L (21-32) Anion Gap 6 (6-14) Blood Urea Nitrogen 18 mg/dL (8-26) Creatinine 0.9 mg/dL (0.7-1.3) Estimated GFR (Cockcroft-Gault) 85.2 BUN/Creatinine Ratio 20 (6-20) Glucose Level 112 mg/dL (70-99) Calcium Level 7.8 mg/dL (8.5-10.1) Magnesium Level 2.0 mg/dL (1.8-2.4) Total Bilirubin 0.4 mg/dL (0.2-1.0) Aspartate Amino Transf (AST/SGOT) 28 U/L (15-37) Alanine Aminotransferase (ALT/SGPT) 32 U/L (16-63) Alkaline Phosphatase 65 U/L (46-116) Total Protein 6.2 g/dL (6.4-8.2) Albumin 3.4 g/dL (3.4-5.0) Albumin/Globulin Ratio 1.2 (1.0-1.7) Ethyl Alcohol Level < 10 mg/dL (0-10) Urine Collection Type Unknown Urine Color Yellow Urine Clarity Clear Urine pH 6.0 Urine Specific [place] >=1.030 Urine Protein Negative mg/dL (NEG-TRACE) Urine Glucose (UA) Negative mg/dL (NEG) Urine Ketones (Stick) Negative mg/dL (NEG) Urine Blood Negative (NEG) Urine Nitrite Negative (NEG) Urine Bilirubin Negative (NEG) Urine Urobilinogen Dipstick 0.2 mg/dL (0.2 mg/dL) Urine Leukocyte Esterase Negative (NEG) Urine RBC 0 /HPF (0-2) Urine WBC Occ /HPF (0-4) Urine Squamous Epithelial Cells Occ /LPF Urine Bacteria 0 /HPF (0-FEW) Urine Mucus Slight /LPF Urine Opiates Screen Neg (NEG) Urine Methadone Screen Neg (NEG) Urine Barbiturates Neg (NEG) Urine Phencyclidine Screen Neg (NEG) Urine Amphetamine/Methamphetamine Neg (NEG) Urine Benzodiazepines Screen Neg (NEG) Urine Cocaine Screen Neg (NEG) Urine Cannabinoids Screen Neg (NEG) Urine Ethyl Alcohol Neg (NEG) Images Images screening films done on admission are reviewed Assessment/Plan Assessment/Plan fall from height right forearm fracture left knee injury no gen surg needs ortho care will see as needed Thanks for consult LAURENT SHERMAN MD Jan 30, 2018 11:41
[2018-01-30] MEDS ORDERED: ONDANSETRON PF 4 MG/2 ML VIAL. IV PRN (11:45)
--- NOTE | 2018-01-30 14:38 | HP ---
ADMIT DATE: 01/30/2018 CHIEF COMPLAINT: Fall with right wrist pain and left knee pain. HISTORY OF PRESENT ILLNESS: The patient is a pleasant middle-aged male who fell off a ladder. The ladder slid down on the concrete. He has right wrist pain and left leg pain. We imaged it. He has got a left patellar fracture and a right distal radius fracture. I have discussed the case with ER physician. We are going to admit the patient and consult Orthopedics. He is going to surgery tomorrow. PAST MEDICAL HISTORY: Previous brain trauma from fall off another ladder. ALLERGIES: None. FAMILY HISTORY: Diabetes. SOCIAL HISTORY: Does not drink, smoke or take drugs. He is . He is retired. MEDICATIONS: Reviewed, please refer to the [facility]. REVIEW OF SYSTEMS: GENERAL: No history of weight change, weakness or fevers. SKIN: No bruising, hair changes or rashes. EYES: No blurred, double or loss of vision. NOSE AND THROAT: No history of nosebleeds, hoarseness or sore throat. HEART: No history of palpitations, chest pain or shortness of breath on exertion. LUNGS: Denies cough, hemoptysis, wheezing or shortness of breath. GASTROINTESTINAL: Denies changes in appetite, nausea, vomiting, diarrhea or constipation. GENITOURINARY: No history of frequency, urgency, hesitancy or nocturia. NEUROLOGIC: Denies history of numbness, tingling, tremor or weakness. PSYCHIATRIC: No history of panic, anxiety or depression. ENDOCRINE: No history of heat or cold intolerance, polyuria or polydipsia. EXTREMITIES: He complains of right wrist pain. PHYSICAL EXAMINATION: VITAL SIGNS: Temperature afebrile, pulse 92, respirations 18, blood pressure 133/74. GENERAL: He is alert, cooperative. His is present. HEART: Normal S1, S2. LUNGS: Clear. ABDOMEN: Soft. EXTREMITIES: The right wrist is in a brace. Left knee is in a brace. ENDOCRINE: No thyromegaly. LYMPHATICS: No cervical nodes. HEMATOPOIETIC: No bruising. LABORATORY DATA: Hematology is normal. Electrolytes are normal. ASSESSMENT AND PLAN: Fall with right distal radius fracture and left patellar fracture. I am going to consult Orthopedics. He is going to surgery tomorrow. For now, he needs p.r.n. narcotics, IV hydration, home meds, p.r.n. antiemetics. NAUN MA DO DR: CHEKO/fidencio JOB#: [id number] / [id number]
[2018-01-30 15:00] VITALS: BP 149/93
--- NOTE | 2018-01-30 15:15 | RAD ---
Left ankle 3 views: Reason for examination: Swelling and pain after fall 2 days ago. No fracture or dislocation is seen. The bone density is normal. No abnormal periosteal reaction is seen. Joint spaces are maintained. There is some soft tissue swelling present. IMPRESSION: Soft tissue swelling but no acute fracture or dislocation seen. Left foot 3 views: There is a elongated 1 cm ossific density seen on the AP view medial to the talus and calcaneus. This could represent a small avulsion fracture. No other acute fracture or dislocation is seen. The bone density is normal. No abnormal periosteal reaction is seen. Joint spaces are maintained. IMPRESSION: Small elongated 1 cm ossific density medial to the talus and calcaneus seen only on AP view. A small avulsion fragment cannot be excluded. Recommend clinical correlation and follow-up. Electronically signed by: Gale Naidu MD (01/30/2018 3:10 PM) [facility]
[2018-01-30 19:00] VITALS: BP 152/94
[2018-01-30 23:00] VITALS: BP 163/88
[2018-01-31] VITALS (7 sets, daily range): BP systolic 102–143; BP diastolic 63–95
[2018-01-31] MEDS: oxyCODONE/APAP 5/325 1 TAB TABLET PO PRN (02:20)
[2018-01-31] MEDS: fentaNYL PF VIAL 100 MCG/2 ML VIAL IV PRN (05:54)
[2018-01-31] MEDS ORDERED: LIDOCAINE 1% PF 2 ML VIAL. ID PRN (09:45)
[2018-01-31] MEDS ORDERED: HYDROmorphone 2 MG/ML VIAL IV PRN (09:45)
[2018-01-31] MEDS ORDERED: IV RINGERS,LACTATED 1000ML 1,000 ML IV SCH (09:45)
[2018-01-31] MEDS ORDERED: fentaNYL PF VIAL 100 MCG/2 ML VIAL IV PRN ×2 (09:45)
[2018-01-31] MEDS ORDERED: MORPHINE SULFATE 2 MG/ML VIAL. IV PRN (09:45)
[2018-01-31] MEDS ORDERED: ONDANSETRON PF 4 MG/2 ML VIAL. IV PRN (09:45)
[2018-01-31] MEDS ORDERED: PROCHLORPERAZINE 10 MG/2 ML VIAL. IV PRN (09:45)
[2018-01-31] MEDS ORDERED: SUMAtriptan SUCCINATE 100 MG TABLET PO PRN (10:00)
[2018-01-31] MEDS ORDERED: LIDOCAINE 1% PF 30 ML VIAL. ONE (10:15)
[2018-01-31] MEDS ORDERED: BUPIVACAINE 0.5% 50 ML VIAL. ONE (10:15)
[2018-01-31] MEDS ORDERED: PROPOFOL 20 ML IV ONE (10:41)
[2018-01-31] MEDS ORDERED: LIDOCAINE 2% PF Vial for OR 5 ML VIAL. ONE (10:41)
[2018-01-31] MEDS ORDERED: ONDANSETRON PF 4 MG/2 ML VIAL. ONE (10:41)
[2018-01-31] MEDS ORDERED: DEXAMETHASONE SOD PHOS 20 MG/5 ML VIAL. ONE (10:41)
[2018-01-31] MEDS ORDERED: fentaNYL PF VIAL 100 MCG/2 ML VIAL ONE ×2 (10:42→13:49)
[2018-01-31] MEDS ORDERED: ePHEDrine PF IN SALINE 50 MG/5 ML DISP.SYRIN IV ONE (13:02)
--- NOTE | 2018-01-31 15:26 | PDOC4 ---
Operative Note Operative Note Date of procedure: 01/31/2018 Surgeon: Chandan Worthington Air Tucker: Bharti Manzo, certified veterinary technician Preoperative diagnosis: #1 comminuted, intra-articular, closed right distal radius fracture #2 left lateral tibial plateau fracture Postoperative diagnoses: Same Procedure performed: Open reduction internal fixation right distal radius fracture Anesthesia: Gen. Findings: Acute distal radius fracture Blood loss: 25 mL Tourniquet time: 81 minutes Components inserted: De La Rosa and nephew 5 hole distal radius locking plate with screw in lag fashion outside of plate Complications: None Reason for procedure: Patient is very pleasant 62-year-old gentleman who had a fall from a height. Please see my consult note for full details. I discussion of the risks, benefits, alternatives to operative fixation of his right distal radius with he and his and they wished to proceed. Description of procedure: Patient was greeted in the preoperative holding area by myself for the correct extremity was verified and marked. He was taken back to the operative suite and his antibiotics were started as she was brought back. Once in the OR, he was transferred gently supine to the operating room table and secured the bed with all pressure points padded. We took off his splint to his left lower extremity and cleansed his entire leg with chlorhexidine. His soft tissues showed very little edema around his proximal tibial region. No fracture blisters. I elected to place a hinged knee brace on for continued soft tissue inspection rather than a long-leg U-splint. His compartments were all soft at his left lower extremity. We then directed our attention to taking his sugar tong splint off his right upper extremity and performed a chlorhexidine pre-scrub with this as well. A nonsterile tourniquet was applied to his right upper extremity and then his right upper extremity was prepped and draped in our usual sterile fashion. We conducted our standard preoperative timeout. I then palpated and marked his radial artery as well as tristen a line from my plan skin incision. I then exsanguinated the extremity with an Esmarch and tourniquet was insufflated to 250 mmHg. After this, I incised skin with a scalpel and dissected subcutaneous tissues tissue and cauterized bleeders with bipolar cautery, used tenotomies for soft tissue dissection. Identified his fascia, he had some hemorrhage already in the subcutaneous tissue , I incised fashion line with the skin incision. I then took down pronator quadratus, much of which was ruptured, with cautery. I then used a periosteal elevator to prepare the volar distal radius in anticipation my plate application. I then used a dental pick, small Rominger, metal tipped suction device to debride the fracture, he had the 2 large cortical areas of comminution as well as the intra-articular split. I begin the procedure by using a hemostat at the volar cortical piece and a [id number] clamp to hold this in place. I then placed a K wire followed by a screw in lag fashion. I was happy with the reduction here. I then pulled longitudinal traction and re- created the fracture deformity and then flexed his wrist with traction in place and some direct manipulation at his articular sections to try for better reduction there, this got a closer, finally I used a [place] in a lever type fashion to facilitate a better reduction. The large dorsal cortical piece, after I explored this, I did not think was amenable to good fixation through my plate or to any other intact cortex. I provisionally please by plating his bone and sized it and then pinned into position. Once I was happy with plate position and fracture reduction, I placed a nonlocking screw to secure the plate to the bone. I then placed my distal row, nonlocking screws and 1 locking screw in the radial styloid, under close visualization with fluoroscopy for each screw. I then placed another one into the ulnar column. After this I placed 2 more screws to secure the plate to the shaft. I then took my final images and was happy with the reduction and fixation. I then irrigated out the operative field thoroughly with sterile saline and let tourniquet down. There was some venous bleeders that I cauterized and some general oozing from the fracture site. I attempted to reapproximate the pronator quadratus, but given the trauma it suffered from his injury it did not hold a stitch. I then closed subcutaneous tissue with inverted interrupted 20 followed by 3-0 nylon in a mattress fashion. Xeroform was then applied after I injected a local anesthetic mixture, insuring extravascular placement, into the region. A well-padded sugar tong split was in a fashion for his right upper extremity. He tolerated surgery well. No competitions. At the conclusion of the surgery, he is awake from anesthesia and transferred gently supine. All counts correct 2 prior wound closure. He was transferred supine to the recovery room cart and taken to the PACU in a stable and extubated condition. Postoperative plan is readmitted to the floor under the care of the hospital was. I will follow along with his postoperative course. We will obtain a CAT scan of his knee to further define that fracture pattern. He'll be maintained on antibiotic prophylaxis. We'll get him started on oral pain medicines. CHANDAN WORTHINGTON II, MD Jan 31, 2018 15:25
--- NOTE | 2018-01-31 16:12 | EKG ---
[facility] [address] [place] [address] Test Date: 2018-01-31 Test Time: 16:06:33 Pat Name: CITLALLI SIMMONS Department: Room: [facility] Gender: M Inspector And Sorter: DAVID : 1955 Requested By: NICOLASA UNDERWOOD Order Number: [id number] Reading MD: Gucci Braun MD Measurements Intervals Rinard Rate: 128 P: NE: QRS: -20 QRSD: 92 T: 153 QT: 326 QTc: 479 Interpretive Statements IRREGULAR RHYTHM, NO P-WAVE FOUND NON-SPECIFIC ST/T CHANGES Electronically Signed On 01-31-2018 17:11:33 CDT by Gucci Braun MD
[2018-01-31] MEDS ORDERED: METOPROLOL TARTRATE 5 MG/5 ML VIAL. IVP ONE ×2 (16:27→16:30)
[2018-01-31] MEDS ORDERED: DIGOXIN IV 500 MCG/2 ML AMPUL. IV ONE (17:00)
[2018-01-31] MEDS ORDERED: dilTIAZem INJ 125 MG in IV DEXTROSE 5% 100ML 100 ML IV PRN (18:15)
[2018-01-31] MEDS ORDERED: dilTIAZem IV PUSH 25 MG/5 ML VIAL IVP ONE (18:30)
--- NOTE | 2018-01-31 18:46 | PDOC2 ---
CONSULT Date of Consult Date of Consult DATE: 01/31/18 TIME: 18:36 Reason for Consult Reason for Consult: Atrial fibrillation Referring Physician Referring Physician: Dr Rudolph Identification/Chief Complaint Chief Complaint Fall from a ladder with resulting bone fractures History of Present Illness Reason for Visit: This patient is a 62-year-old gentleman that has a previous history of a fall off a ladder at which time he had a head trauma. He had been doing rather well until now when he was up on a ladder and had another fall sustaining fracture of the left leg and the right arm. He underwent surgery for the arm already. The patient may have sustained some chest blunt trauma during the fall. He has no prior history of heart disease but is a hypertensive patient. He denies any history of heart attacks coronary artery disease. After the patient's arrival he was found to be in atrial fibrillation. This is known to him and he denies any prior history of A. fib. No palpitations. Past Medical History Cardiovascular: No pertinent hx, HTN Pulmonary: No pertinent hx CENTRAL NERVOUS SYSTEM: Other (head trauma from a previous fall) Past Surgical History Past Surgical History: No pertinent history Family History Family History: Heart Disease Social History No ALCOHOL: rare Lives: with Family Current Problem List Problem List Problems Medical Problems: (1) Fall Status: Acute (2) Fracture of left distal radius Status: Acute (3) Fracture of left tibial plateau Status: Acute (4) Fracture of right distal radius Status: Acute Current Medications Current Medications Current Medications Fentanyl Citrate (Fentanyl 2ml Vial) 50 mcg 1X ONCE IV Last administered on at 21:11; Start 01/29/18 at 20:15; Stop 01/29/18 at 20:16; Status DC Sodium Chloride 1,000 ml @ 1,000 mls/hr 1X ONCE IV Last administered on at 21:10; Start 01/29/18 at 20:15; Stop 01/29/18 at 21:14; Status DC Fentanyl Citrate (Fentanyl 2ml Vial) 50 mcg 1X ONCE IV Last administered on at 22:08; Start 01/29/18 at 21:30; Stop 01/29/18 at 21:31; Status DC Fentanyl Citrate (Fentanyl 2ml Vial) 50 mcg PRN Q2HR PRN IV SEVERE PAIN Last administered on 01/30/18at 20:56; Start 01/29/18 at 22:00; Stop 01/30/18 at 21:59 ; Status DC Fentanyl Citrate (Fentanyl 2ml Vial) 50 mcg 1X ONCE IV Last administered on at 23:33; Start 01/29/18 at 22:15; Stop 01/29/18 at 22:16; Status DC Iohexol (Omnipaque 300 Mg/ml) 75 ml 1X ONCE IV Last administered on 01/29/18at 23:17; Start 01/29/18 at 23:00; Stop 01/29/18 at 23:01; Status DC Info (CONTRAST GIVEN -- Rx MONITORING) 1 each PRN DAILY PRN MC SEE COMMENTS; Start 01/29/18 at 22:45; Stop 01/31/18 at 22:44 Oxycodone/ Acetaminophen (Percocet 5/325) 1 tab PRN Q4HRS PRN PO PAIN Last administered on 01/31/18at 02:20; Start 01/30/18 at 09:45 Ondansetron HCl (Zofran) 4 mg PRN Q6HRS PRN IV NAUSEA/VOMITING Last administered on 01/31/18at 07:30; Start 01/30/18 at 11:45 Fentanyl Citrate (Fentanyl 2ml Vial) 50 mcg PRN Q2HR PRN IV SEVERE PAIN Last administered on 01/31/18at 05:54; Start 01/30/18 at 23:30 Cefazolin Sodium/ Dextrose 50 ml @ 100 mls/hr 1X ONCE IV Last administered on 01/31/18at 12:40; Start 01/31/18 at 08:00; Stop 01/31/18 at 08:29; Status DC Ondansetron HCl (Zofran) 4 mg PRN Q6HRS PRN IV NAUSEA/VOMITING; Start 01/31/18 at 09:45; Stop 01/31/18 at 10:18; Status DC Fentanyl Citrate (Fentanyl 2ml Vial) 25 mcg PRN Q5MIN PRN IV MILD PAIN; Start 01/31/18 at 09:45; Stop 01/31/18 at 23:00 Fentanyl Citrate (Fentanyl 2ml Vial) 50 mcg PRN Q5MIN PRN IV MODERATE TO SEVERE PAIN; Start 01/31/18 at 09:45; Stop 01/31/18 at 23:00 Morphine Sulfate (Morphine Sulfate) 1 mg PRN Q10MIN PRN IV SEVERE PAIN; Start 01/31/18 at 09:45; Stop 01/31/18 at 23:00 Ringer's Solution 1,000 ml @ 30 mls/hr Q24H IV Last administered on 01/31/18at 11:54; Start 01/31/18 at 09:45; Stop 01/31/18 at 21:44 Lidocaine HCl (Xylocaine-Mpf 1% 2ml Vial) 2 ml 1X PRN PRN ID IV START; Start at 09:45; Stop 01/31/18 at 23:00 Hydromorphone HCl (Dilaudid) 0.5 mg PRN Q10MIN PRN IV SEV PAIN, Second choice; Start 01/31/18 at 09:45; Stop 01/31/18 at 23:00 Prochlorperazine Edisylate (Compazine) 5 mg PACU PRN PRN IV NAUSEA, MRX1; Start 01/31/18 at 09:45; Stop 01/31/18 at 23:00 Sumatriptan Succinate (Imitrex) 100 mg PRN Q2HR PRN PO MIGRAINE HEADACHE Last administered on 01/31/18at 10:33; Start 01/31/18 at 10:00 Propofol 20 ml @ As Directed STK-MED ONCE IV ; Start 01/31/18 at 10:41; Stop at 10:42; Status DC Lidocaine HCl (Lidocaine Pf 2% Vial) 5 ml STK-MED ONCE .ROUTE ; Start 01/31/18 at 10:41; Stop 01/31/18 at 10:42; Status DC Dexamethasone Sodium Phosphate (Decadron) 20 mg STK-MED ONCE .ROUTE ; Start at 10:41; Stop 01/31/18 at 10:42; Status DC Ondansetron HCl (Zofran) 4 mg STK-MED ONCE .ROUTE ; Start 01/31/18 at 10:41; Stop 01/31/18 at 10:42; Status DC Fentanyl Citrate (Fentanyl 2ml Vial) 100 mcg STK-MED ONCE .ROUTE ; Start at 10:42; Stop 01/31/18 at 10:43; Status DC Lidocaine HCl (Xylocaine 1% Pf 30ml Vial) 30 ml STK-MED ONCE .ROUTE Last administered on 01/31/18at 13:00; Start 01/31/18 at 10:15; Stop 01/31/18 at 11:16 ; Status DC Bupivacaine HCl (Marcaine 0.5%) 50 ml STK-MED ONCE .ROUTE Last administered on 01/31/18at 13:00; Start 01/31/18 at 10:15; Stop 01/31/18 at 11:16; Status DC Ephedrine Sulfate (ePHEDrine PF IN SALINE SYRINGE) 50 mg STK-MED ONCE IV ; Start 01/31/18 at 13:02; Stop 01/31/18 at 13:04; Status DC Fentanyl Citrate (Fentanyl 2ml Vial) 100 mcg STK-MED ONCE .ROUTE ; Start at 13:49; Stop 01/31/18 at 13:51; Status DC Cefazolin Sodium/ Dextrose 50 ml @ 100 mls/hr Q8H IV ; Start 01/31/18 at 21:00 ; Stop 02/02/18 at 05:29 Metoprolol Tartrate (Lopressor Vial) 5 mg 1X ONCE IVP Last administered on at 16:30; Start 01/31/18 at 16:30; Stop 01/31/18 at 16:32; Status DC Metoprolol Tartrate (Lopressor) 50 mg BID PO ; Start 01/31/18 at 21:00 Digoxin (Lanoxin) 250 mcg 1X ONCE IV Last administered on 01/31/18at 17:56; Start 01/31/18 at 17:00; Stop 01/31/18 at 17:01; Status DC Metoprolol Tartrate (Lopressor Vial) 5 mg STK-MED ONCE IVP ; Start 01/31/18 at 16:27; Stop 01/31/18 at 16:28; Status DC Diltiazem HCl 125 mg/Dextrose 125 ml @ 5 mls/hr CONT PRN IV SEE I/O RECORD Last administered on 01/31/18at 18:27; Start 01/31/18 at 18:15 Diltiazem HCl (Cardizem) 10 mg 1X ONCE IVP Last administered on 01/31/18at 18: 22; Start 01/31/18 at 18:30; Stop 01/31/18 at 18:31; Status DC Active Scripts Active Reported Sudafed 12-Hour (Pseudoephedrine Hcl) 120 Mg Tablet.er 120 Mg PO DAILY Aspirin 81 Mg Tab.chew 1 Tab PO DAILY Zyrtec (Cetirizine Hcl) 10 Mg Tablet 1 Tab PO HS Allergies Allergies: Coded Allergies: No Known Drug Allergies (Unverified , 01/29/18) Physical Exam General: Alert, Oriented X3, Cooperative HEENT: Atraumatic, PERRLA Lungs: Clear to auscultation Heart: Other (irregularly irregular S1, S2. No murmur) Abdomen: Normal bowel sounds, Soft Extremities: Other (left leg and knee in a brace. Large cast on right arm) Vitals VITALS Vital Signs Date Time Temp Pulse Resp B/P (MAP) Pulse Ox O2 Delivery O2 Flow Rate FiO2 01/31/18 18:22 117 143/95 01/31/18 17:43 95 2L 01/31/18 17:24 22 2 01/31/18 16:39 97.6 97.6 Labs Labs Laboratory Tests Test 01/29/18 20:35 01/30/18 00:40 White Blood Count 10.7 x10^3/uL (4.0-11.0) Red Blood Count 4.49 x10^6/uL (4.30-5.70) Hemoglobin 13.3 g/dL (13.0-17.5) Hematocrit 39.7 % (39.0-53.0) Mean Corpuscular Volume 88 fL (79-100) Mean Corpuscular Hemoglobin 30 pg (25-35) Mean Corpuscular Hemoglobin Concent 34 g/dL (31-37) Red Cell Distribution Width 13.9 % (11.5-14.5) Platelet Count 215 x10^3/uL (140-400) Neutrophils (%) (Auto) 81 % (31-73) Lymphocytes (%) (Auto) 9 % (24-48) Monocytes (%) (Auto) 8 % (0-9) Eosinophils (%) (Auto) 2 % (0-3) Basophils (%) (Auto) 1 % (0-3) Neutrophils # (Auto) 8.7 x10^3uL (1.8-7.7) Lymphocytes # (Auto) 0.9 x10^3/uL (1.0-4.8) Monocytes # (Auto) 0.8 x10^3/uL (0.0-1.1) Eosinophils # (Auto) 0.2 x10^3/uL (0.0-0.7) Basophils # (Auto) 0.1 x10^3/uL (0.0-0.2) Prothrombin Time 12.9 SEC (11.7-14.0) Prothromb Time International Ratio 1.0 (0.8-1.1) Activated Partial Thromboplast Time 21 SEC (24-38) Sodium Level 141 mmol/L (136-145) Potassium Level 3.9 mmol/L (3.5-5.1) Chloride Level 107 mmol/L (98-107) Carbon Dioxide Level 28 mmol/L (21-32) Anion Gap 6 (6-14) Blood Urea Nitrogen 18 mg/dL (8-26) Creatinine 0.9 mg/dL (0.7-1.3) Estimated GFR (Cockcroft-Gault) 85.2 BUN/Creatinine Ratio 20 (6-20) Glucose Level 112 mg/dL (70-99) Calcium Level 7.8 mg/dL (8.5-10.1) Magnesium Level 2.0 mg/dL (1.8-2.4) Total Bilirubin 0.4 mg/dL (0.2-1.0) Aspartate Amino Transf (AST/SGOT) 28 U/L (15-37) Alanine Aminotransferase (ALT/SGPT) 32 U/L (16-63) Alkaline Phosphatase 65 U/L (46-116) Total Protein 6.2 g/dL (6.4-8.2) Albumin 3.4 g/dL (3.4-5.0) Albumin/Globulin Ratio 1.2 (1.0-1.7) Ethyl Alcohol Level < 10 mg/dL (0-10) Urine Collection Type Unknown Urine Color Yellow Urine Clarity Clear Urine pH 6.0 Urine Specific [place] >=1.030 Urine Protein Negative mg/dL (NEG-TRACE) Urine Glucose (UA) Negative mg/dL (NEG) Urine Ketones (Stick) Negative mg/dL (NEG) Urine Blood Negative (NEG) Urine Nitrite Negative (NEG) Urine Bilirubin Negative (NEG) Urine Urobilinogen Dipstick 0.2 mg/dL (0.2 mg/dL) Urine Leukocyte Esterase Negative (NEG) Urine RBC 0 /HPF (0-2) Urine WBC Occ /HPF (0-4) Urine Squamous Epithelial Cells Occ /LPF Urine Bacteria 0 /HPF (0-FEW) Urine Mucus Slight /LPF Urine Opiates Screen Neg (NEG) Urine Methadone Screen Neg (NEG) Urine Barbiturates Neg (NEG) Urine Phencyclidine Screen Neg (NEG) Urine Amphetamine/Methamphetamine Neg (NEG) Urine Benzodiazepines Screen Neg (NEG) Urine Cocaine Screen Neg (NEG) Urine Cannabinoids Screen Neg (NEG) Urine Ethyl Alcohol Neg (NEG) Assessment/Plan Assessment/Plan This patient is in atrial fibrillation at this point I do not know if place was that he sustained a significant contusion with a fall that could have caused to myocardial contusion with dysrhythmias. I would like to get an echocardiogram to evaluate for the presence of fluids and the left ventricular function. I would start the patient on a Cardizem drip to see if we can get him to convert to sinus and I would also suggest to start the patient on heparin if it' s okay with the orthopedic service. Thank you very much for asking me to participate in the care of this patient IDALIA CARTER MD Jan 31, 2018 18:46
[2018-01-31] MEDS: METOPROLOL TART IMMED RELEASE 50 MG TABLET. PO SCH (20:33)
[2018-02-01] VITALS (8 sets, daily range): BP systolic 96–123; BP diastolic 60–71
[2018-02-01] MEDS: oxyCODONE/APAP 5/325 1 TAB TABLET PO PRN ×3 (02:55→19:35)
[2018-02-01] MEDS: METOPROLOL TART IMMED RELEASE 50 MG TABLET. PO SCH ×2 (09:00→20:51)
--- NOTE | 2018-02-01 13:58 | PDOC ---
PROGRESS NOTES Chief Complaint Chief Complaint Rt wrist traumatic fx s/p ORIF rapid new onset afib left knee fx traumatic from fall rt kidney nodule 3cm plan: fu with ortho. seems insurance wont cover sx here, pt will fu with [facility] for left knee fx taper cardizem , on metoprolol po, fu with card PTOT talked to pt about the kidney mass, but he said his insurance only covers emergency here, he wants to fu with uro as outpt. for rehab check tsh,echo pending. History of Present Illness History of Present Illness ROS: no fever, chills, sob or chest pain very concern about his insurance coverage wants to go to [facility] now sinus, still on cardim drip Vitals Vitals Vital Signs Date Time Temp Pulse Resp B/P (MAP) Pulse Ox O2 Delivery O2 Flow Rate FiO2 02/01/18 11:35 18 95 Room Air 2.0 02/01/18 11:00 98.2 64 101/61 (74) 98.2 Physical Exam Physical Exam rt wrist had cast on left knee has stabilizer General: Alert, Oriented X3, Cooperative Heart: Regular rate, Normal S1, Normal S2, Other (irregularly irregular S1, S2. No murmur) Lungs: Clear Abdomen: Normal bowel sounds, Soft Extremities: Other (left leg and knee in a brace. Large cast on right arm) Skin: No rashes Assessment and Plan Assessmemt and Plan Problems Medical Problems: (1) Fall Status: Acute (2) Fracture of left distal radius Status: Acute (3) Fracture of left tibial plateau Status: Acute (4) Fracture of right distal radius Status: Acute Comment Review of Relevant I have reviewed the following items xiao (where applicable) has been applied. Medications Current Medications Fentanyl Citrate (Fentanyl 2ml Vial) 50 mcg 1X ONCE IV Last administered on at 21:11; Start 01/29/18 at 20:15; Stop 01/29/18 at 20:16; Status DC Sodium Chloride 1,000 ml @ 1,000 mls/hr 1X ONCE IV Last administered on at 21:10; Start 01/29/18 at 20:15; Stop 01/29/18 at 21:14; Status DC Fentanyl Citrate (Fentanyl 2ml Vial) 50 mcg 1X ONCE IV Last administered on at 22:08; Start 01/29/18 at 21:30; Stop 01/29/18 at 21:31; Status DC Fentanyl Citrate (Fentanyl 2ml Vial) 50 mcg PRN Q2HR PRN IV SEVERE PAIN Last administered on 01/30/18at 20:56; Start 01/29/18 at 22:00; Stop 01/30/18 at 21:59 ; Status DC Fentanyl Citrate (Fentanyl 2ml Vial) 50 mcg 1X ONCE IV Last administered on at 23:33; Start 01/29/18 at 22:15; Stop 01/29/18 at 22:16; Status DC Iohexol (Omnipaque 300 Mg/ml) 75 ml 1X ONCE IV Last administered on 01/29/18at 23:17; Start 01/29/18 at 23:00; Stop 01/29/18 at 23:01; Status DC Info (CONTRAST GIVEN -- Rx MONITORING) 1 each PRN DAILY PRN MC SEE COMMENTS; Start 01/29/18 at 22:45; Stop 01/31/18 at 22:44; Status DC Oxycodone/ Acetaminophen (Percocet 5/325) 1 tab PRN Q4HRS PRN PO PAIN Last administered on 02/01/18at 10:30; Start 01/30/18 at 09:45 Ondansetron HCl (Zofran) 4 mg PRN Q6HRS PRN IV NAUSEA/VOMITING Last administered on 01/31/18at 07:30; Start 01/30/18 at 11:45 Fentanyl Citrate (Fentanyl 2ml Vial) 50 mcg PRN Q2HR PRN IV SEVERE PAIN Last administered on 01/31/18at 05:54; Start 01/30/18 at 23:30 Cefazolin Sodium/ Dextrose 50 ml @ 100 mls/hr 1X ONCE IV Last administered on 01/31/18at 12:40; Start 01/31/18 at 08:00; Stop 01/31/18 at 08:29; Status DC Ondansetron HCl (Zofran) 4 mg PRN Q6HRS PRN IV NAUSEA/VOMITING; Start 01/31/18 at 09:45; Stop 01/31/18 at 10:18; Status DC Fentanyl Citrate (Fentanyl 2ml Vial) 25 mcg PRN Q5MIN PRN IV MILD PAIN; Start 01/31/18 at 09:45; Stop 01/31/18 at 23:00; Status DC Fentanyl Citrate (Fentanyl 2ml Vial) 50 mcg PRN Q5MIN PRN IV MODERATE TO SEVERE PAIN; Start 01/31/18 at 09:45; Stop 01/31/18 at 23:00; Status DC Morphine Sulfate (Morphine Sulfate) 1 mg PRN Q10MIN PRN IV SEVERE PAIN; Start 01/31/18 at 09:45; Stop 01/31/18 at 23:00; Status DC Ringer's Solution 1,000 ml @ 30 mls/hr Q24H IV Last administered on 01/31/18at 11:54; Start 01/31/18 at 09:45; Stop 01/31/18 at 21:44; Status DC Lidocaine HCl (Xylocaine-Mpf 1% 2ml Vial) 2 ml 1X PRN PRN ID IV START; Start at 09:45; Stop 01/31/18 at 23:00; Status DC Hydromorphone HCl (Dilaudid) 0.5 mg PRN Q10MIN PRN IV SEV PAIN, Second choice; Start 01/31/18 at 09:45; Stop 01/31/18 at 23:00; Status DC Prochlorperazine Edisylate (Compazine) 5 mg PACU PRN PRN IV NAUSEA, MRX1; Start 01/31/18 at 09:45; Stop 01/31/18 at 23:00; Status DC Sumatriptan Succinate (Imitrex) 100 mg PRN Q2HR PRN PO MIGRAINE HEADACHE Last administered on 01/31/18at 10:33; Start 01/31/18 at 10:00 Propofol 20 ml @ As Directed STK-MED ONCE IV ; Start 01/31/18 at 10:41; Stop at 10:42; Status DC Lidocaine HCl (Lidocaine Pf 2% Vial) 5 ml STK-MED ONCE .ROUTE ; Start 01/31/18 at 10:41; Stop 01/31/18 at 10:42; Status DC Dexamethasone Sodium Phosphate (Decadron) 20 mg STK-MED ONCE .ROUTE ; Start at 10:41; Stop 01/31/18 at 10:42; Status DC Ondansetron HCl (Zofran) 4 mg STK-MED ONCE .ROUTE ; Start 01/31/18 at 10:41; Stop 01/31/18 at 10:42; Status DC Fentanyl Citrate (Fentanyl 2ml Vial) 100 mcg STK-MED ONCE .ROUTE ; Start at 10:42; Stop 01/31/18 at 10:43; Status DC Lidocaine HCl (Xylocaine 1% Pf 30ml Vial) 30 ml STK-MED ONCE .ROUTE Last administered on 01/31/18at 13:00; Start 01/31/18 at 10:15; Stop 01/31/18 at 11:16 ; Status DC Bupivacaine HCl (Marcaine 0.5%) 50 ml STK-MED ONCE .ROUTE Last administered on 01/31/18at 13:00; Start 01/31/18 at 10:15; Stop 01/31/18 at 11:16; Status DC Ephedrine Sulfate (ePHEDrine PF IN SALINE SYRINGE) 50 mg STK-MED ONCE IV ; Start 01/31/18 at 13:02; Stop 01/31/18 at 13:04; Status DC Fentanyl Citrate (Fentanyl 2ml Vial) 100 mcg STK-MED ONCE .ROUTE ; Start at 13:49; Stop 01/31/18 at 13:51; Status DC Cefazolin Sodium/ Dextrose 50 ml @ 100 mls/hr Q8H IV Last administered on 02/01at 13:40; Start 01/31/18 at 21:00; Stop 02/02/18 at 05:29 Metoprolol Tartrate (Lopressor Vial) 5 mg 1X ONCE IVP Last administered on at 16:30; Start 01/31/18 at 16:30; Stop 01/31/18 at 16:32; Status DC Metoprolol Tartrate (Lopressor) 50 mg BID PO ; Start 01/31/18 at 21:00 Digoxin (Lanoxin) 250 mcg 1X ONCE IV Last administered on 01/31/18at 17:56; Start 01/31/18 at 17:00; Stop 01/31/18 at 17:01; Status DC Metoprolol Tartrate (Lopressor Vial) 5 mg STK-MED ONCE IVP ; Start 01/31/18 at 16:27; Stop 01/31/18 at 16:28; Status DC Diltiazem HCl 125 mg/Dextrose 125 ml @ 5 mls/hr CONT PRN IV SEE I/O RECORD Last administered on 01/31/18at 18:27; Start 01/31/18 at 18:15 Diltiazem HCl (Cardizem) 10 mg 1X ONCE IVP Last administered on 01/31/18at 18: 22; Start 01/31/18 at 18:30; Stop 01/31/18 at 18:31; Status DC Active Scripts Active Reported Sudafed 12-Hour (Pseudoephedrine Hcl) 120 Mg Tablet.er 120 Mg PO DAILY Aspirin 81 Mg Tab.chew 1 Tab PO DAILY Zyrtec (Cetirizine Hcl) 10 Mg Tablet 1 Tab PO HS Vitals/I & O Vital Sign - Last 24 Hours 01/31/18 01/31/18 01/31/18 01/31/18 14:47 14:54 15:09 15:24 Temp 97.6 97.6 97.6 97.6 97.6 97.6 Pulse 60 78 70 Resp 15 15 15 B/P (MAP) 144/78 129/94 149/69 Pulse Ox 95 97 92 O2 Delivery Room Air Room Air Room Air Room Air Simple Mask O2 Flow Rate 96.0 10 10 01/31/18 01/31/18 01/31/18 01/31/18 15:39 15:54 16:09 16:24 Temp 97.6 97.6 97.6 97.6 97.6 97.6 97.6 97.6 Pulse 69 126 93 89 Resp 15 16 15 15 B/P (MAP) 158/47 159/75 156/74 159/75 Pulse Ox 98 95 95 94 O2 Delivery Room Air Room Air Room Air Nasal Cannula O2 Flow Rate 10 10 2 01/31/18 01/31/18 01/31/18 01/31/18 16:30 16:39 16:54 17:09 Temp 97.6 97.6 Pulse 122 99 98 106 Resp 16 18 B/P (MAP) 156/74 131/88 137/84 Pulse Ox 95 95 95 O2 Delivery Nasal Cannula Nasal Cannula Nasal Cannula O2 Flow Rate 2 2 2 01/31/18 01/31/18 01/31/18 01/31/18 17:24 17:43 17:45 17:56 Pulse 97 107 97 Resp 22 B/P (MAP) 126/74 143/95 (111) 143/95 Pulse Ox 95 95 O2 Delivery Nasal Cannula 2L Room Air O2 Flow Rate 2 2.0 01/31/18 01/31/18 01/31/18 01/31/18 18:22 19:20 19:45 19:45 Temp 97.8 97.8 Pulse 117 107 97 Resp 20 B/P (MAP) 143/95 113/73 (86) 113/73 (86) Pulse Ox 95 O2 Delivery 2L Room Air Room Air O2 Flow Rate 2.0 01/31/18 01/31/18 01/31/18 02/01/18 20:59 21:59 22:59 00:00 Temp 98.7 98.7 Pulse 107 82 79 78 Resp 20 B/P (MAP) 110/70 (83) 128/63 (84) 102/65 (77) 102/60 (74) Pulse Ox 94 O2 Delivery Room Air Room Air Room Air Room Air 02/01/18 02/01/18 02/01/18 02/01/18 01:00 02:50 02:55 07:15 Temp 98.3 98.2 98.3 98.2 Pulse 92 78 59 Resp 18 18 B/P (MAP) 113/68 (83) 104/60 (75) 96/62 (73) Pulse Ox 95 96 O2 Delivery Room Air Room Air Room Air Room Air 02/01/18 02/01/18 02/01/18 02/01/18 08:00 09:00 10:30 11:00 Temp 98.2 98.2 Pulse 60 64 Resp 15 18 B/P (MAP) 100/58 101/61 (74) Pulse Ox 97 95 O2 Delivery Room Air Room Air Room Air O2 Flow Rate 2.0 02/01/18 11:35 Resp 18 Pulse Ox 95 O2 Delivery Room Air O2 Flow Rate 2.0 Intake and Output 01/31/18 01/31/18 02/01/18 15:00 23:00 07:00 Intake Total 1550 ml 900 ml 520 ml Output Total 25 ml 1500 ml 600 ml Balance 1525 ml -600 ml -80 ml MARILY YEH MD Feb 01, 2018 13:58
--- NOTE | 2018-02-01 14:18 | RAD ---
EXAM: CT left knee DATE: 02/01/2018 7:00 AM COMPARISON: Radiographs 01/29/2018 INDICATION: TIBIAL PLATEAU FRACTURE. TECHNIQUE: Helical CT was performed through the left knee without IV contrast. 2-D reformatted axial, sagittal and coronal images were created at the CT console workstation. FINDINGS: There is a comminuted fracture of the lateral tibial plateau involving approximately 75% of the articular surface. There is approximately 16 mm depression of the lateral tibial plateau. In addition there is a vertical split-type component extending to the posterolateral aspect of the proximal tibial shaft. In addition there is a split-type fracture extending in the coronal plane through the medial tibial plateau without depression or displacement. There is also a nondisplaced fibular head fracture. Moderate soft tissue swelling about the knee most prominent anterolaterally. Mild lipohemarthrosis. Atherosclerotic vascular calcifications are seen. IMPRESSION: 1. Comminuted fracture of the lateral tibial plateau with 16 mm depression and comminution of the articular surface. 2. There is also a fracture extending through the medial tibial plateau along the coronal plane 3. Nondisplaced fibular head fracture 4. Mild lipohemarthrosis. Electronically signed by: Yogi Greene MD (02/01/2018 2:15 PM) [id number]
--- NOTE | 2018-02-01 14:49 | PDOC ---
ORTHO PROGRESS NOTES Subjective Right wrist pain is tolerable. His left knee pain is tolerable as well. He is working with therapy. Vitals Vital Signs Date Time Temp Pulse Resp B/P (MAP) Pulse Ox O2 Delivery O2 Flow Rate FiO2 02/01/18 11:35 18 95 Room Air 2.0 02/01/18 11:00 98.2 64 101/61 (74) 98.2 Notes He is awake and alert. Sugar tong is in place. Mild edema at his exposed fingers. Normal motor and sensation present there. Hinge knee brace is in place. Soft tissues look okay. Compartments are soft. No pain with passive range of motion. Assessment and Plan Further surgery at , he has an outpatient appointment for this and he should keep that. We will make sure he has a copy of his CAT scan he will be nonweightbearing right upper and left lower extremities. He will follow up with me in my clinic in 2-3 weeks for his wrist MARIMAR WORTHINGTON II, MD Feb 01, 2018 14:49
[2018-02-01] MEDS: ASPIRIN CHEWABLE 81 MG TABLET. PO SCH (15:00)
[2018-02-01] MEDS ORDERED: dilTIAZem HCL 30 MG TABLET PO ONE (18:30)
--- NOTE | 2018-02-01 18:30 | PDOC ---
PROGRESS NOTES Subjective Subjective Patient converted to sinus rhythm. No cardiac complaints today. Objective Objective Vital Signs Date Time Temp Pulse Resp B/P (MAP) Pulse Ox O2 Delivery O2 Flow Rate FiO2 02/01/18 15:00 98.1 62 18 113/70 (84) 96 Room Air 98.1 02/01/18 11:35 2.0 Intake and Output 02/01/18 07:00 Intake Total 2970 ml Output Total 2125 ml Balance 845 ml Intake Oral 920 ml IV Total 2050 ml Output Urine Total 2100 ml Estimated Blood Loss 25 ml Physical Exam Physical Exam No changes in cardiac exam Assessment Assessment Patient converted to sinus rhythm. Will switch him to by mouth Cardizem. I still recommend for the patient to be anticoagulated since with his present fractures and limited level of activity plus I do not know if he is having paroxysmal atrial fibrillation. We will start him on overall anticoagulation tomorrow Comment Review of Relevant I have reviewed the following items xiao (where applicable) has been applied. Medications Current Medications Fentanyl Citrate (Fentanyl 2ml Vial) 50 mcg 1X ONCE IV Last administered on at 21:11; Start 01/29/18 at 20:15; Stop 01/29/18 at 20:16; Status DC Sodium Chloride 1,000 ml @ 1,000 mls/hr 1X ONCE IV Last administered on at 21:10; Start 01/29/18 at 20:15; Stop 01/29/18 at 21:14; Status DC Fentanyl Citrate (Fentanyl 2ml Vial) 50 mcg 1X ONCE IV Last administered on at 22:08; Start 01/29/18 at 21:30; Stop 01/29/18 at 21:31; Status DC Fentanyl Citrate (Fentanyl 2ml Vial) 50 mcg PRN Q2HR PRN IV SEVERE PAIN Last administered on 01/30/18at 20:56; Start 01/29/18 at 22:00; Stop 01/30/18 at 21:59 ; Status DC Fentanyl Citrate (Fentanyl 2ml Vial) 50 mcg 1X ONCE IV Last administered on at 23:33; Start 01/29/18 at 22:15; Stop 01/29/18 at 22:16; Status DC Iohexol (Omnipaque 300 Mg/ml) 75 ml 1X ONCE IV Last administered on 01/29/18at 23:17; Start 01/29/18 at 23:00; Stop 01/29/18 at 23:01; Status DC Info (CONTRAST GIVEN -- Rx MONITORING) 1 each PRN DAILY PRN MC SEE COMMENTS; Start 01/29/18 at 22:45; Stop 01/31/18 at 22:44; Status DC Oxycodone/ Acetaminophen (Percocet 5/325) 1 tab PRN Q4HRS PRN PO PAIN Last administered on 02/01/18at 10:30; Start 01/30/18 at 09:45 Ondansetron HCl (Zofran) 4 mg PRN Q6HRS PRN IV NAUSEA/VOMITING Last administered on 01/31/18at 07:30; Start 01/30/18 at 11:45 Fentanyl Citrate (Fentanyl 2ml Vial) 50 mcg PRN Q2HR PRN IV SEVERE PAIN Last administered on 01/31/18at 05:54; Start 01/30/18 at 23:30 Cefazolin Sodium/ Dextrose 50 ml @ 100 mls/hr 1X ONCE IV Last administered on 01/31/18at 12:40; Start 01/31/18 at 08:00; Stop 01/31/18 at 08:29; Status DC Ondansetron HCl (Zofran) 4 mg PRN Q6HRS PRN IV NAUSEA/VOMITING; Start 01/31/18 at 09:45; Stop 01/31/18 at 10:18; Status DC Fentanyl Citrate (Fentanyl 2ml Vial) 25 mcg PRN Q5MIN PRN IV MILD PAIN; Start 01/31/18 at 09:45; Stop 01/31/18 at 23:00; Status DC Fentanyl Citrate (Fentanyl 2ml Vial) 50 mcg PRN Q5MIN PRN IV MODERATE TO SEVERE PAIN; Start 01/31/18 at 09:45; Stop 01/31/18 at 23:00; Status DC Morphine Sulfate (Morphine Sulfate) 1 mg PRN Q10MIN PRN IV SEVERE PAIN; Start 01/31/18 at 09:45; Stop 01/31/18 at 23:00; Status DC Ringer's Solution 1,000 ml @ 30 mls/hr Q24H IV Last administered on 01/31/18at 11:54; Start 01/31/18 at 09:45; Stop 01/31/18 at 21:44; Status DC Lidocaine HCl (Xylocaine-Mpf 1% 2ml Vial) 2 ml 1X PRN PRN ID IV START; Start at 09:45; Stop 01/31/18 at 23:00; Status DC Hydromorphone HCl (Dilaudid) 0.5 mg PRN Q10MIN PRN IV SEV PAIN, Second choice; Start 01/31/18 at 09:45; Stop 01/31/18 at 23:00; Status DC Prochlorperazine Edisylate (Compazine) 5 mg PACU PRN PRN IV NAUSEA, MRX1; Start 01/31/18 at 09:45; Stop 01/31/18 at 23:00; Status DC Sumatriptan Succinate (Imitrex) 100 mg PRN Q2HR PRN PO MIGRAINE HEADACHE Last administered on 01/31/18at 10:33; Start 01/31/18 at 10:00 Propofol 20 ml @ As Directed STK-MED ONCE IV ; Start 01/31/18 at 10:41; Stop at 10:42; Status DC Lidocaine HCl (Lidocaine Pf 2% Vial) 5 ml STK-MED ONCE .ROUTE ; Start 01/31/18 at 10:41; Stop 01/31/18 at 10:42; Status DC Dexamethasone Sodium Phosphate (Decadron) 20 mg STK-MED ONCE .ROUTE ; Start at 10:41; Stop 01/31/18 at 10:42; Status DC Ondansetron HCl (Zofran) 4 mg STK-MED ONCE .ROUTE ; Start 01/31/18 at 10:41; Stop 01/31/18 at 10:42; Status DC Fentanyl Citrate (Fentanyl 2ml Vial) 100 mcg STK-MED ONCE .ROUTE ; Start at 10:42; Stop 01/31/18 at 10:43; Status DC Lidocaine HCl (Xylocaine 1% Pf 30ml Vial) 30 ml STK-MED ONCE .ROUTE Last administered on 01/31/18at 13:00; Start 01/31/18 at 10:15; Stop 01/31/18 at 11:16 ; Status DC Bupivacaine HCl (Marcaine 0.5%) 50 ml STK-MED ONCE .ROUTE Last administered on 01/31/18at 13:00; Start 01/31/18 at 10:15; Stop 01/31/18 at 11:16; Status DC Ephedrine Sulfate (ePHEDrine PF IN SALINE SYRINGE) 50 mg STK-MED ONCE IV ; Start 01/31/18 at 13:02; Stop 01/31/18 at 13:04; Status DC Fentanyl Citrate (Fentanyl 2ml Vial) 100 mcg STK-MED ONCE .ROUTE ; Start at 13:49; Stop 01/31/18 at 13:51; Status DC Cefazolin Sodium/ Dextrose 50 ml @ 100 mls/hr Q8H IV Last administered on 02/01at 13:40; Start 01/31/18 at 21:00; Stop 02/02/18 at 05:29 Metoprolol Tartrate (Lopressor Vial) 5 mg 1X ONCE IVP Last administered on at 16:30; Start 01/31/18 at 16:30; Stop 01/31/18 at 16:32; Status DC Metoprolol Tartrate (Lopressor) 50 mg BID PO ; Start 01/31/18 at 21:00 Digoxin (Lanoxin) 250 mcg 1X ONCE IV Last administered on 01/31/18at 17:56; Start 01/31/18 at 17:00; Stop 01/31/18 at 17:01; Status DC Metoprolol Tartrate (Lopressor Vial) 5 mg STK-MED ONCE IVP ; Start 01/31/18 at 16:27; Stop 01/31/18 at 16:28; Status DC Diltiazem HCl 125 mg/Dextrose 125 ml @ 5 mls/hr CONT PRN IV SEE I/O RECORD Last administered on 01/31/18at 18:27; Start 01/31/18 at 18:15 Diltiazem HCl (Cardizem) 10 mg 1X ONCE IVP Last administered on 01/31/18at 18: 22; Start 01/31/18 at 18:30; Stop 01/31/18 at 18:31; Status DC Aspirin (Children'S Aspirin) 81 mg DAILY PO Last administered on 02/01/18at 15: 00; Start 02/01/18 at 15:00 Cetirizine HCl (ZyrTEC) 10 mg HS PO ; Start 02/01/18 at 21:00 Active Scripts Active Reported Sudafed 12-Hour (Pseudoephedrine Hcl) 120 Mg Tablet.er 120 Mg PO DAILY Aspirin 81 Mg Tab.chew 1 Tab PO DAILY Zyrtec (Cetirizine Hcl) 10 Mg Tablet 1 Tab PO HS Vitals/I & O Vital Sign - Last 24 Hours 01/31/18 01/31/18 01/31/18 01/31/18 19:20 19:45 19:45 20:59 Temp 97.8 97.8 Pulse 107 97 107 Resp 20 B/P (MAP) 113/73 (86) 113/73 (86) 110/70 (83) Pulse Ox 95 O2 Delivery 2L Room Air Room Air Room Air O2 Flow Rate 2.0 01/31/18 01/31/18 02/01/18 02/01/18 21:59 22:59 00:00 01:00 Temp 98.7 98.7 Pulse 82 79 78 92 Resp 20 B/P (MAP) 128/63 (84) 102/65 (77) 102/60 (74) 113/68 (83) Pulse Ox 94 O2 Delivery Room Air Room Air Room Air Room Air 02/01/18 02/01/18 02/01/18 02/01/18 02:50 02:55 07:15 08:00 Temp 98.3 98.2 98.3 98.2 Pulse 78 59 Resp 18 18 B/P (MAP) 104/60 (75) 96/62 (73) Pulse Ox 95 96 O2 Delivery Room Air Room Air Room Air Room Air 02/01/18 02/01/18 02/01/18 02/01/18 09:00 10:30 11:00 11:35 Temp 98.2 98.2 Pulse 60 64 Resp 18 18 B/P (MAP) 100/58 101/61 (74) Pulse Ox 97 95 95 O2 Delivery Room Air Room Air Room Air O2 Flow Rate 2.0 2.0 02/01/18 15:00 Temp 98.1 98.1 Pulse 62 Resp 18 B/P (MAP) 113/70 (84) Pulse Ox 96 O2 Delivery Room Air Intake and Output 01/31/18 01/31/18 02/01/18 15:00 23:00 07:00 Intake Total 1550 ml 900 ml 520 ml Output Total 25 ml 1500 ml 600 ml Balance 1525 ml -600 ml -80 ml IDALIA CARTER MD Feb 01, 2018 18:30
[2018-02-01] MEDS ORDERED: HEPARIN 25,000UTS/500ML PREMIX 500 ML IV PRN (19:00)
[2018-02-01] MEDS ORDERED: HEPARIN for IV BOLUS 10,000 UNIT/10 ML VIAL. IV ONE (19:00)
--- NOTE | 2018-02-01 19:21 | CARD ---
MR#: [id number] Date of Study: 02/01/2018 Ordering Physician: HOMAR RICCI, Referring Physician: VALERY LIVINGSTON, Tech: Yahaira Ennis APPROVED REPORT EXAM: Two-dimensional and M-mode echocardiogram with Doppler and color Doppler. Other Information Quality : AverageHR: 65bpm INDICATION Atrial Fibrillation Blunt chest Trama 2D DIMENSIONS RVDd2.6 (2.9-3.5cm)Left Atrium(2D)3.8 (1.6-4.0cm) IVSd0.9 (0.7-1.1cm)Aortic Root(2D)2.8 (2.0-3.7cm) LVDd5.1 (3.9-5.9cm)LVOT Diameter2.1 (1.8-2.4cm) PWd1.3 (0.7-1.1cm)LVDs3.4 (2.5-4.0cm) FS (%) 34.4 %SV79.1 ml LVEF(%)63.0 (>50%) Aortic Valve AoV Peak Esvin.145.9cm/sAoV VTI30.9cm AO Peak GR.8.5mmHgLVOT VTI 16.29cm AO Mean GR.4mmHg Mitral Valve MV E Sdprigyu58.4cm/sMV DECEL [id number] MV A Ibytmmuk53.9cm/sE/A Ratio1.6 TDI Lateral E' P. V9.18cm/sMedial E' P. V13.52cm/s E/Lateral E'10.0E/Medial E'6.8 Tricuspid Valve TR P. Bclpswst274tb/sRAP [id number] TR Peak Gr.[id number] Pulmonary Vein PVa [id number] LEFT VENTRICLE The left ventricle is normal size. There is normal left ventricular wall thickness. The left ventricu lar systolic function is normal and the ejection fraction is 63%. There is normal LV segmental wall m otion. The left ventricular diastolic function and filling is normal for age. RIGHT VENTRICLE The right ventricle is mildly dilated. There is normal right ventricular wall thickness. The right ve ntricle is mildly hypokinetic ATRIA The left atrium size is normal. The right atrium is mildly dilated. AORTIC VALVE The aortic valve is normal in structure and function. Doppler and Color Flow revealed no significant aortic regurgitation. There is no significant aortic valvular stenosis. MITRAL VALVE The mitral valve is normal in structure and function. Doppler and Color-flow revealed trace mitral re gurgitation. TRICUSPID VALVE The tricuspid valve is normal in structure and function. Doppler and Color Flow revealed trace tricus pid regurgitation. PULMONIC VALVE The Pulmonary valve was poorly visualized GREAT VESSELS The aortic root is normal in size. The IVC is normal in size and collapses >50% with inspiration. PERICARDIAL EFFUSION There is a small circumferential pericardial effusion. Critical Notification Critical Value: No <Conclusion> The left ventricular systolic function is normal and the ejection fraction is 63%. The right ventricle is mildly dilated. The right ventricle is mildly hypokinetic The left atrium size is normal. The right atrium is mildly dilated. The aortic valve is normal in structure and function. Doppler and Color-flow revealed trace mitral regurgitation. Doppler and Color Flow revealed trace tricuspid regurgitation. The Pulmonary valve was poorly visualized There is a small circumferential pericardial effusion. Signed by : Homar Ricci MD Electronically Approved : 02/01/2018 19:21:10
[2018-02-01] MEDS ORDERED: CETIRIZINE HCL 10 MG TABLET. PO SCH (21:00)
[2018-02-02 03:35] VITALS: BP 105/59
[2018-02-02 07:00] VITALS: BP 108/61
[2018-02-02 07:31] LABS: BASO # 0.1 x10^3/uL (0.0-0.2); BASO % 1 % (0-3); EOS # 0.5 x10^3/uL (0.0-0.7); EOS % 7 % (0-3); HEMATOCRIT 35.3 % (39.0-53.0); HEMOGLOBIN 12.1 g/dL (13.0-17.5); LYMPH % 27 % (24-48); MEAN CORPUSCULAR HEMOGLOBIN 30 pg (25-35); MEAN CORPUSCULAR HGB CONC 34 g/dL (31-37); MEAN CORPUSCULAR VOLUME 88 fL (79-100); MONO # 0.7 x10^3/uL (0.0-1.1); MONO % 10 % (0-9); NEUT # 4.3 x10^3uL (1.8-7.7); NEUT % 56 % (31-73); PLATELET COUNT 227 x10^3/uL (140-400); RED CELL DISTRIBUTION WIDTH 13.9 % (11.5-14.5); WHITE BLOOD COUNT 7.6 x10^3/uL (4.0-11.0)
[2018-02-02 07:45] LABS: CREATININE 0.8 mg/dL (0.7-1.3); GFR 97.6; POTASSIUM 3.7 mmol/L (3.5-5.1)
--- NOTE | 2018-02-02 07:46 | PDOC ---
ORTHO PROGRESS NOTES Subjective Noticed bruising and "sore" feeling medially at foot. Not mentioned before. Vitals Vital Signs Date Time Temp Pulse Resp B/P (MAP) Pulse Ox O2 Delivery O2 Flow Rate FiO2 02/02/18 03:35 97.9 46 18 105/59 (74) 95 Room Air 97.9 02/01/18 11:35 2.0 Notes A and A in bed LLE: tender today medially hind/midfoot, compartments soft, no pain with PROM, skin intact RUE: remains NVI, edema at fingers Assessment and Plan Will get CT L foot and ankle MARIMAR WORTHINGTON II, MD Feb 02, 2018 07:46
[2018-02-02] MEDS: METOPROLOL TART IMMED RELEASE 50 MG TABLET. PO SCH ×2 (09:00→09:26)
[2018-02-02] MEDS: ASPIRIN CHEWABLE 81 MG TABLET. PO SCH (09:21)
--- NOTE | 2018-02-02 10:53 | RAD ---
CT of the left foot without contrast, 02/02/2018: HISTORY: Injury, pain Noncontrast scans were obtained with multiplanar reconstructions produced. There is a comminuted fracture of the posterior medial aspect of the navicular bone. The fracture lines involve the medial aspect its articular surface at the talonavicular articulation. There is mild displacement of several small fracture fragments. No dislocation is evident. No other acute fracture is seen. There are moderate scattered degenerative changes at the mid foot level. A well-corticated calcific density along the dorsal aspect of the midfoot appears old. Several small calcifications along the medial margin of the calcaneus posteriorly also appear old. There is moderate diffuse subcutaneous edema. Scattered arterial calcifications are noted. IMPRESSION: Comminuted fracture of the medial margin of the navicular bone as described above. PQRS Compliance Statement: One or more of the following individualized dose reduction techniques were utilized for this examination: 1. Automated exposure control 2. Adjustment of the mA and/or kV according to patient size 3. Use of iterative reconstruction technique Electronically signed by: Abelardo Carter MD (02/02/2018 10:50 AM) [facility]
[2018-02-02 10:58] VITALS: BP 104/61
[2018-02-02] MEDS ORDERED: ANTI-COAG MONITOR BY PHARMACY. MC PRN (11:15)
[2018-02-02 11:39] LABS: PROTHROMBIN TIME PATIENT 12.9 SEC (11.7-14.0)
[2018-02-02] MEDS ORDERED: DILT180C29 PO (12:53)
[2018-02-02] MEDS ORDERED: METO50TA6 PO (12:53)
--- NOTE | 2018-02-02 12:58 | PDOC3 ---
Discharge Summary [facility] Date of Admission: Jan 29, 2018 Discharge Date: Feb 02, 2018 Admitting Diagnosis Rt wrist traumatic fx s/p ORIF rapid new onset afib left knee fx traumatic from fall left ankle traumatic fx from fall rt kidney nodule 3cm Final Diagnosis CONSULTS card ortho Brief Hospital Course Mr. Curry is a 62 old M, came post fall from a ladder. denies lost of consciousness. He was found rt wrist fx s/p ORIF here. left knee and ankle fx from CT. due to his insurance coverage, dr. Cardona recommend him fu with ortho in tmr. But As per , likely cannot get a bed for rehab today. family request to transfer to , i talked to dr. Platt who is willing to take him. Pt also had a new onset rapid afib post sx, now back to sinus, cardizem drip stopped, on po cardizem and metoprolol, heparin drip. cont these meds for transfer. dc time 40min. Physical Exam rt wrist had cast on left knee has stabilizer General: Alert, Oriented X3, Cooperative Heart: Regular rate, Normal S1, Normal S2, Other ( sinus, S1, S2. No murmur) Lungs: Clear Abdomen: Normal bowel sounds, Soft Extremities: Other (left leg and knee in a brace. Large cast on right arm) Skin: No rashes Disposition CONDITION AT DISCHARGE: Improved Scheduled Aspirin (Aspirin), 1 TAB PO DAILY, (Reported) Cetirizine Hcl (Zyrtec), 1 TAB PO HS, (Reported) Diltiazem Hcl (Diltiazem 24HR Cd), 180 MG PO DAILY08 Metoprolol Tartrate (Metoprolol Tartrate), 50 MG PO BID Discontinued Medications Pseudoephedrine Hcl (Sudafed 12-Hour), 120 MG PO DAILY, (Reported) MARILY YEH MD Feb 02, 2018 12:58
[2018-02-02 14:14] VITALS: BP 133/68
[2018-02-02 15:04] VITALS: BP 133/68
[2018-02-02] MEDS ORDERED: WARFARIN 5 MG TABLET. PO ONE (16:00)
--- NOTE | 2018-02-02 17:31 | PDOC ---
PROGRESS NOTES Subjective Subjective Pt complaints of pain. Objective Objective Vital Signs Date Time Temp Pulse Resp B/P (MAP) Pulse Ox O2 Delivery O2 Flow Rate FiO2 02/02/18 15:04 62 133/68 02/02/18 14:14 98.5 16 92 Room Air 96.0 98.5 Intake and Output 02/02/18 07:00 Intake Total 1830 ml Output Total 1650 ml Balance 180 ml Intake Oral 1780 ml IV Total 50 ml Output Urine Total 1650 ml Physical Exam Physical Exam Regular rate and rhythm. No changes in heart exam. Assessment Assessment Patient in sinus rhythm. I would continue with heparin and once it is decided when he needs to have surgery for the leg then we can plan for warfarin. Due to insurance issues patient is being transferred to another institution were the leg surgery will be performed Comment Review of Relevant I have reviewed the following items xiao (where applicable) has been applied. Labs Laboratory Tests Test 02/02/18 07:10 White Blood Count 7.6 x10^3/uL (4.0-11.0) Red Blood Count 4.00 x10^6/uL (4.30-5.70) Hemoglobin 12.1 g/dL (13.0-17.5) Hematocrit 35.3 % (39.0-53.0) Mean Corpuscular Volume 88 fL (79-100) Mean Corpuscular Hemoglobin 30 pg (25-35) Mean Corpuscular Hemoglobin Concent 34 g/dL (31-37) Red Cell Distribution Width 13.9 % (11.5-14.5) Platelet Count 227 x10^3/uL (140-400) Neutrophils (%) (Auto) 56 % (31-73) Lymphocytes (%) (Auto) 27 % (24-48) Monocytes (%) (Auto) 10 % (0-9) Eosinophils (%) (Auto) 7 % (0-3) Basophils (%) (Auto) 1 % (0-3) Neutrophils # (Auto) 4.3 x10^3uL (1.8-7.7) Lymphocytes # (Auto) 2.0 x10^3/uL (1.0-4.8) Monocytes # (Auto) 0.7 x10^3/uL (0.0-1.1) Eosinophils # (Auto) 0.5 x10^3/uL (0.0-0.7) Basophils # (Auto) 0.1 x10^3/uL (0.0-0.2) Prothrombin Time 12.9 SEC (11.7-14.0) Prothromb Time International Ratio 1.0 (0.8-1.1) Heparin Anti-Xa Act, Unfractionated 0.22 IU/mL (0.30-0.70) Sodium Level 141 mmol/L (136-145) Potassium Level 3.7 mmol/L (3.5-5.1) Chloride Level 105 mmol/L (98-107) Carbon Dioxide Level 29 mmol/L (21-32) Anion Gap 7 (6-14) Blood Urea Nitrogen 15 mg/dL (8-26) Creatinine 0.8 mg/dL (0.7-1.3) Estimated GFR (Cockcroft-Gault) 97.6 Glucose Level 98 mg/dL (70-99) Calcium Level 8.0 mg/dL (8.5-10.1) Thyroid Stimulating Hormone (TSH) 1.155 uIU/mL (0.358-3.74) Laboratory Tests Test 02/02/18 07:10 White Blood Count 7.6 x10^3/uL (4.0-11.0) Red Blood Count 4.00 x10^6/uL (4.30-5.70) Hemoglobin 12.1 g/dL (13.0-17.5) Hematocrit 35.3 % (39.0-53.0) Mean Corpuscular Volume 88 fL (79-100) Mean Corpuscular Hemoglobin 30 pg (25-35) Mean Corpuscular Hemoglobin Concent 34 g/dL (31-37) Red Cell Distribution Width 13.9 % (11.5-14.5) Platelet Count 227 x10^3/uL (140-400) Neutrophils (%) (Auto) 56 % (31-73) Lymphocytes (%) (Auto) 27 % (24-48) Monocytes (%) (Auto) 10 % (0-9) Eosinophils (%) (Auto) 7 % (0-3) Basophils (%) (Auto) 1 % (0-3) Neutrophils # (Auto) 4.3 x10^3uL (1.8-7.7) Lymphocytes # (Auto) 2.0 x10^3/uL (1.0-4.8) Monocytes # (Auto) 0.7 x10^3/uL (0.0-1.1) Eosinophils # (Auto) 0.5 x10^3/uL (0.0-0.7) Basophils # (Auto) 0.1 x10^3/uL (0.0-0.2) Prothrombin Time 12.9 SEC (11.7-14.0) Prothromb Time International Ratio 1.0 (0.8-1.1) Heparin Anti-Xa Act, Unfractionated 0.22 IU/mL (0.30-0.70) Sodium Level 141 mmol/L (136-145) Potassium Level 3.7 mmol/L (3.5-5.1) Chloride Level 105 mmol/L (98-107) Carbon Dioxide Level 29 mmol/L (21-32) Anion Gap 7 (6-14) Blood Urea Nitrogen 15 mg/dL (8-26) Creatinine 0.8 mg/dL (0.7-1.3) Estimated GFR (Cockcroft-Gault) 97.6 Glucose Level 98 mg/dL (70-99) Calcium Level 8.0 mg/dL (8.5-10.1) Thyroid Stimulating Hormone (TSH) 1.155 uIU/mL (0.358-3.74) Medications Current Medications Fentanyl Citrate (Fentanyl 2ml Vial) 50 mcg 1X ONCE IV Last administered on at 21:11; Start 01/29/18 at 20:15; Stop 01/29/18 at 20:16; Status DC Sodium Chloride 1,000 ml @ 1,000 mls/hr 1X ONCE IV Last administered on at 21:10; Start 01/29/18 at 20:15; Stop 01/29/18 at 21:14; Status DC Fentanyl Citrate (Fentanyl 2ml Vial) 50 mcg 1X ONCE IV Last administered on at 22:08; Start 01/29/18 at 21:30; Stop 01/29/18 at 21:31; Status DC Fentanyl Citrate (Fentanyl 2ml Vial) 50 mcg PRN Q2HR PRN IV SEVERE PAIN Last administered on 01/30/18at 20:56; Start 01/29/18 at 22:00; Stop 01/30/18 at 21:59 ; Status DC Fentanyl Citrate (Fentanyl 2ml Vial) 50 mcg 1X ONCE IV Last administered on at 23:33; Start 01/29/18 at 22:15; Stop 01/29/18 at 22:16; Status DC Iohexol (Omnipaque 300 Mg/ml) 75 ml 1X ONCE IV Last administered on 01/29/18at 23:17; Start 01/29/18 at 23:00; Stop 01/29/18 at 23:01; Status DC Info (CONTRAST GIVEN -- Rx MONITORING) 1 each PRN DAILY PRN MC SEE COMMENTS; Start 01/29/18 at 22:45; Stop 01/31/18 at 22:44; Status DC Oxycodone/ Acetaminophen (Percocet 5/325) 1 tab PRN Q4HRS PRN PO PAIN Last administered on 02/01/18at 19:35; Start 01/30/18 at 09:45 Ondansetron HCl (Zofran) 4 mg PRN Q6HRS PRN IV NAUSEA/VOMITING Last administered on 01/31/18at 07:30; Start 01/30/18 at 11:45 Fentanyl Citrate (Fentanyl 2ml Vial) 50 mcg PRN Q2HR PRN IV SEVERE PAIN Last administered on 01/31/18at 05:54; Start 01/30/18 at 23:30 Cefazolin Sodium/ Dextrose 50 ml @ 100 mls/hr 1X ONCE IV Last administered on 01/31/18at 12:40; Start 01/31/18 at 08:00; Stop 01/31/18 at 08:29; Status DC Ondansetron HCl (Zofran) 4 mg PRN Q6HRS PRN IV NAUSEA/VOMITING; Start 01/31/18 at 09:45; Stop 01/31/18 at 10:18; Status DC Fentanyl Citrate (Fentanyl 2ml Vial) 25 mcg PRN Q5MIN PRN IV MILD PAIN; Start 01/31/18 at 09:45; Stop 01/31/18 at 23:00; Status DC Fentanyl Citrate (Fentanyl 2ml Vial) 50 mcg PRN Q5MIN PRN IV MODERATE TO SEVERE PAIN; Start 01/31/18 at 09:45; Stop 01/31/18 at 23:00; Status DC Morphine Sulfate (Morphine Sulfate) 1 mg PRN Q10MIN PRN IV SEVERE PAIN; Start 01/31/18 at 09:45; Stop 01/31/18 at 23:00; Status DC Ringer's Solution 1,000 ml @ 30 mls/hr Q24H IV Last administered on 01/31/18at 11:54; Start 01/31/18 at 09:45; Stop 01/31/18 at 21:44; Status DC Lidocaine HCl (Xylocaine-Mpf 1% 2ml Vial) 2 ml 1X PRN PRN ID IV START; Start at 09:45; Stop 01/31/18 at 23:00; Status DC Hydromorphone HCl (Dilaudid) 0.5 mg PRN Q10MIN PRN IV SEV PAIN, Second choice; Start 01/31/18 at 09:45; Stop 01/31/18 at 23:00; Status DC Prochlorperazine Edisylate (Compazine) 5 mg PACU PRN PRN IV NAUSEA, MRX1; Start 01/31/18 at 09:45; Stop 01/31/18 at 23:00; Status DC Sumatriptan Succinate (Imitrex) 100 mg PRN Q2HR PRN PO MIGRAINE HEADACHE Last administered on 01/31/18at 10:33; Start 01/31/18 at 10:00 Propofol 20 ml @ As Directed STK-MED ONCE IV ; Start 01/31/18 at 10:41; Stop at 10:42; Status DC Lidocaine HCl (Lidocaine Pf 2% Vial) 5 ml STK-MED ONCE .ROUTE ; Start 01/31/18 at 10:41; Stop 01/31/18 at 10:42; Status DC Dexamethasone Sodium Phosphate (Decadron) 20 mg STK-MED ONCE .ROUTE ; Start at 10:41; Stop 01/31/18 at 10:42; Status DC Ondansetron HCl (Zofran) 4 mg STK-MED ONCE .ROUTE ; Start 01/31/18 at 10:41; Stop 01/31/18 at 10:42; Status DC Fentanyl Citrate (Fentanyl 2ml Vial) 100 mcg STK-MED ONCE .ROUTE ; Start at 10:42; Stop 01/31/18 at 10:43; Status DC Lidocaine HCl (Xylocaine 1% Pf 30ml Vial) 30 ml STK-MED ONCE .ROUTE Last administered on 01/31/18at 13:00; Start 01/31/18 at 10:15; Stop 01/31/18 at 11:16 ; Status DC Bupivacaine HCl (Marcaine 0.5%) 50 ml STK-MED ONCE .ROUTE Last administered on 01/31/18at 13:00; Start 01/31/18 at 10:15; Stop 01/31/18 at 11:16; Status DC Ephedrine Sulfate (ePHEDrine PF IN SALINE SYRINGE) 50 mg STK-MED ONCE IV ; Start 01/31/18 at 13:02; Stop 01/31/18 at 13:04; Status DC Fentanyl Citrate (Fentanyl 2ml Vial) 100 mcg STK-MED ONCE .ROUTE ; Start at 13:49; Stop 01/31/18 at 13:51; Status DC Cefazolin Sodium/ Dextrose 50 ml @ 100 mls/hr Q8H IV Last administered on 02/02at 05:24; Start 01/31/18 at 21:00; Stop 02/02/18 at 05:29; Status DC Metoprolol Tartrate (Lopressor Vial) 5 mg 1X ONCE IVP Last administered on at 16:30; Start 01/31/18 at 16:30; Stop 01/31/18 at 16:32; Status DC Metoprolol Tartrate (Lopressor) 50 mg BID PO Last administered on 02/01/18at 20: 51; Start 01/31/18 at 21:00 Digoxin (Lanoxin) 250 mcg 1X ONCE IV Last administered on 01/31/18at 17:56; Start 01/31/18 at 17:00; Stop 01/31/18 at 17:01; Status DC Metoprolol Tartrate (Lopressor Vial) 5 mg STK-MED ONCE IVP ; Start 01/31/18 at 16:27; Stop 01/31/18 at 16:28; Status DC Diltiazem HCl 125 mg/Dextrose 125 ml @ 5 mls/hr CONT PRN IV SEE I/O RECORD Last administered on 01/31/18at 18:27; Start 01/31/18 at 18:15; Stop 02/02/18 at 12:51; Status DC Diltiazem HCl (Cardizem) 10 mg 1X ONCE IVP Last administered on 01/31/18at 18: 22; Start 01/31/18 at 18:30; Stop 01/31/18 at 18:31; Status DC Aspirin (Children'S Aspirin) 81 mg DAILY PO Last administered on 02/02/18at 09: 21; Start 02/01/18 at 15:00 Cetirizine HCl (ZyrTEC) 10 mg HS PO Last administered on 02/01/18at 20:50; Start 02/01/18 at 21:00 Heparin Sodium/ Dextrose 500 ml @ 20 mls/hr CONT PRN IV SEE I/O RECORD Last administered on 02/01/18at 19:05; Start 02/01/18 at 19:00 Heparin Sodium (Porcine) (Heparin Sodium) 5,000 unit 1X ONCE IV Last administered on 02/01/18at 19:00; Start 02/01/18 at 19:00; Stop 02/01/18 at 19:01 ; Status DC Diltiazem HCl (Cardizem 24hr Cd) 180 mg DAILY08 PO Last administered on at 15:04; Start 02/02/18 at 08:00 Diltiazem HCl (Cardizem) 180 mg 1X ONCE PO ; Start 02/01/18 at 18:30; Stop at 18:31; Status Cancel Diltiazem HCl (Cardizem 24hr Cd) 180 mg 1X ONCE PO Last administered on at 19:14; Start 02/01/18 at 18:45; Stop 02/01/18 at 18:46; Status DC Info (Anti-Coagulation Monitoring By Pharmacy) 1 each PRN DAILY PRN MC SEE COMMENTS Last administered on 02/02/18at 11:12; Start 02/02/18 at 11:15 Warfarin Sodium (Coumadin) 10 mg 1X ONCE PO ; Start 02/02/18 at 16:00; Stop at 16:00; Status DC Warfarin Sodium (Coumadin Per Physician) 1 each PRN DAILY PRN MC SEE COMMENTS; Start 02/02/18 at 11:30 Active Scripts Active Diltiazem 24HR Cd (Diltiazem Hcl) 180 Mg Cap.er.24h 180 Mg PO DAILY08 30 Days Reported Aspirin 81 Mg Tab.chew 1 Tab PO DAILY Zyrtec (Cetirizine Hcl) 10 Mg Tablet 1 Tab PO HS Vitals/I & O Vital Sign - Last 24 Hours 02/01/18 02/01/18 02/01/18 02/01/18 19:14 19:25 19:35 19:45 Temp 98.4 98.4 Pulse 70 66 Resp 18 B/P (MAP) 113/70 123/66 (85) Pulse Ox 94 O2 Delivery Room Air Room Air Room Air 02/01/18 02/01/18 02/02/18 02/02/18 20:51 22:50 03:35 07:00 Temp 98.2 97.9 98.1 98.2 97.9 98.1 Pulse 66 53 46 53 Resp 18 18 18 B/P (MAP) 123/66 110/71 (84) 105/59 (74) 108/61 (77) Pulse Ox 96 95 93 O2 Delivery Room Air Room Air Room Air 02/02/18 02/02/18 02/02/18 02/02/18 08:00 08:00 09:00 09:26 Pulse 58 58 58 B/P (MAP) 114/68 114/68 114/68 O2 Delivery Room Air 02/02/18 02/02/18 02/02/18 10:58 14:14 15:04 Temp 98.4 98.5 98.4 98.5 Pulse 55 62 62 Resp 16 16 B/P (MAP) 104/61 (75) 133/68 (89) 133/68 Pulse Ox 92 92 O2 Delivery Room Air Room Air O2 Flow Rate 96.0 Intake and Output 02/01/18 02/01/18 02/02/18 15:00 23:00 07:00 Intake Total 370 ml 700 ml 760 ml Output Total 500 ml 600 ml 550 ml Balance -130 ml 100 ml 210 ml IDALIA CARTER MD Feb 02, 2018 17:31
== END 2018-02-02 15:28 | disposition short-term general hospital (02) | DRG 511 ==
LOC: ER 19:38 → 4 NORTH 21:55 → 2 NORTH 01-31 16:38
PROVIDERS: ADMIT Internal Medicine; ATTEND Internal Medicine
PROC: 0PSH04Z Reposition Right Radius with Internal Fixation Device, Open Approach (ICD-10-PCS; principal; 2018-01-31 13:00)
DX: S52.571A Other intraarticular fracture of lower end of right radius, initial encounter for closed fracture (principal); S82.002A Unspecified fracture of left patella, initial encounter for closed fracture; S82.142A Displaced bicondylar fracture of left tibia, initial encounter for closed fracture; I48.91 Unspecified atrial fibrillation; W11.XXXA Fall on and from ladder, initial encounter; Z83.3 Family history of diabetes mellitus; Z87.820 Personal history of traumatic brain injury; Y93.89 Activity, other specified; Y92.89 Other specified places as the place of occurrence of the external cause; Y99.8 Other external cause status
CPT/HCPCS: 29125; 36415; 70450; 71045; 71260; 72125; 72170; 73090; 73110; 73562; 73610; 73630; 73700; 74177; 76000; 80048; 80053; 80307; 81001; 83735; 84443; 85025; 85520; 85610; 85730; 93005; 93306; 96360; A7015; C1713; G0480; J0690; J1100; J1160; J1644; J2001; J2405; J2704; J3010; J3490; J7030; J7120; Q9967; 97110; 97530; 97535; 99285-25; G0479